=== PATIENT | female | born 1970 | race Two or more races ===

== ENCOUNTER 2021-12-10 16:02 | Inpatient (IN) | payer OTHER ==
[~2021-12-10] VITALS: Ht 167.6 cm; Wt 64.0 kg
[2021-12-10] MEDS: ENOXAPARIN SODIUM 40 MG/0.4 ML DISP.SYRIN SQ SCH (02:18)
--- NOTE | 2021-12-10 16:15 | NUR ---
[id number], from home, sob 89% on 2lpm NC, 96% on NRB, family said patient been having cough x 1 week. PLACED ON BED, AWAKE KNOWN HISTORY OF CEREBRAL PALSY- NON VERBAL, BREATHING EVEN AND UNLABORED SATURATING AT 97% WITH 4 LIT O2 VIA NASAL CANULA.
--- NOTE | 2021-12-10 16:20 | NUR ---
HUMAN RESOURCES BENEFITS COORDINATOR AT BED SIDE
--- NOTE | 2021-12-10 17:00 | NUR ---
SWAB FOR COVID19 SENT TO LAB
--- NOTE | 2021-12-10 17:12 | NUR ---
X-RAY TECH AT BED SIDE
[2021-12-10] MEDS ORDERED: ROPI0.255 PO (18:00)
[2021-12-10] MEDS ORDERED: MONT10TA22 PO (18:00)
[2021-12-10] MEDS ORDERED: TRAM50TA2 PO (18:00)
[2021-12-10] MEDS ORDERED: FURO-145 PO (18:00)
[2021-12-10] MEDS ORDERED: FOLI0.4T6 PO (18:00)
[2021-12-10] MEDS ORDERED: NORT25CA PO (18:00)
[2021-12-10] MEDS ORDERED: TEMA30CA PO (18:00)
[2021-12-10] MEDS ORDERED: LOSA1TAB39 PO (18:00)
[2021-12-10] MEDS ORDERED: BACL10TA PO (18:00)
[2021-12-10] MEDS ORDERED: DOCU-141 PO (18:00)
[2021-12-10] MEDS ORDERED: ATEN50TA PO (18:00)
[2021-12-10 18:02] LABS: ALBUMIN 3.5 g/dL (3.4-5.0); BASOPHILS # (AUTO) 0.1 K/uL (0.0-0.2); BASOPHILS % (AUTO) 0.6 % (0.0-2.0); BILIRUBIN,DIRECT 0.1 mg/dL (0.0-0.2); BILIRUBIN,TOTAL 0.3 mg/dL (0.2-1.0); EOSINOPHILS % (AUTO) 2.3 % (0.0-6.0); HEMATOCRIT 38 % (33-45); HEMOGLOBIN 12.4 g/dL (11.5-14.8); LYMPHOCYTES # (AUTO) 2.5 K/uL (0.8-4.8); LYMPHOCYTES % (AUTO) 18.5 % (20.0-44.0); MEAN CORPUSCULAR HGB CONC 33 g/dl (31.0-36.0); MEAN CORPUSCULAR VOLUME 89 fL (82-100); MONOCYTES # (AUTO) 0.8 K/uL (0.1-1.30); MONOCYTES % (AUTO) 6.1 % (2.0-12.0); NEUTROPHILS # (AUTO) 9.9 K/uL (1.8-8.9); NEUTROPHILS % (AUTO) 72.5 % (43.0-81.0); RED BLOOD CELL COUNT(AUTO) 4.29 MIL/uL (4.0-5.2); TOTAL PROTEIN, SERUM 7.4 g/dL (6.4-8.2); WHITE BLOOD COUNT (AUTO) 13.7 K/uL (4.3-11.0)
[2021-12-10 18:16] LABS: CARBON DIOXIDE 33 mmol/L (21-32); CHLORIDE 98 mmol/L (98-107); CREATININE 0.9 mg/dL (0.6-1.3); GLUCOSE 123 mg/dL (74-106); POTASSIUM 3.8 mmol/L (3.5-5.1); SODIUM SERUM 138 mmol/L (136-145); UREA NITROGEN, BLOOD 32 mg/dL (7-18)
--- NOTE | 2021-12-10 18:25 | NUR ---
URINE SAMPLE SENT TO LAB
[2021-12-10 18:27] LABS: PLATELET COUNT (AUTO) 412 K/uL (150-450)
[2021-12-10 18:35] LABS: EOSINOPHILS % (MANUAL) 1 % (0-4); LYMPHOCYTES % (MANUAL) 22 % (16-48); MONOCYTES % (MANUAL) 5 % (0-11.0); NEUTROPHILS % (MANUAL) 72 (42-76)
--- NOTE | 2021-12-10 19:42 | NUR ---
[facility] CALLED DAIRY FARMER PAGED.
[2021-12-10 19:46] LABS: BILIRUBIN,URINE NEGATIVE (NEGATIVE); COLOR,URINE YELLOW (YELLOW); LEUKOCYTE ESTERASE ,URINE TRACE (NEGATIVE); NITRITE, URINE POSITIVE (NEGATIVE); PROTEIN,URINE NEGATIVE (NEGATIVE); UGLUCOSE NEGATIVE (NEGATIVE); UROBILINOGEN,URINE 0.2 EU/dL (0.2)
[2021-12-10 19:53] LABS: BACTERIA,URINE 4+ /HPF (None Seen); RBC,URINE 0-2 /HPF (0-2); SQUAMOUS EPITHELIAL CELL,UR 0-2 /HPF (None Seen)
[2021-12-10] MEDS ORDERED: IV NS 0.9% 1,000 ML IV ONE (20:30)
[2021-12-10] MEDS ORDERED: CT SWABBABLE VALVE TRANS SET 1 EA INFUS.SET MC ONE (20:46)
[2021-12-10] MEDS ORDERED: IOHEXOL-350 100 ML VIAL IV ONE (20:46)
[2021-12-10] MEDS ORDERED: IV NS 0.9% 250 ML IV ONE (20:47)
[2021-12-10] MEDS ORDERED: ONDANSETRON HCL/PF 4 MG/2 ML VIAL IVP PRN (21:00)
[2021-12-10] MEDS ORDERED: CEFTRIAXONE 1 G in IV D5W 50 ML IV ONE (21:00)
[2021-12-10] MEDS ORDERED: MAGNESIUM HYDROXIDE 30 ML UDC PO PRN (21:00)
[2021-12-10] MEDS ORDERED: CEFTRIAXONE 1GM BAG (ER ONLY) 50 ML IV ONE (21:06)
--- NOTE | 2021-12-10 22:52 | NUR ---
Efe john in [facility] - 12/10/21 at 2332 by JOSE F tele [phone]
[2021-12-10] MEDS ORDERED: TEMAZEPAM 15 MG CAPSULE PO SCH (23:04)
--- NOTE | 2021-12-10 23:32 | NUR ---
TELE [phone]
[2021-12-10] MEDS: IV NS 0.9% 1,000 ML IV PRN (23:40)
--- NOTE | 2021-12-10 23:49 | NUR ---
REPORT GIVEN TO RN ROOM 325 FOR MARY
--- NOTE | 2021-12-11 00:12 | NUR ---
RT PAGED FOR SUCTIONING
--- NOTE | 2021-12-11 00:18 | NUR ---
RT AT BEDSIDE FOR SUCTIONING
[2021-12-11] MEDS ORDERED: IV NS 0.9% 500 ML IV ONE (00:30)
[2021-12-11] MEDS: ACETYLCYSTEINE 10% SOLN 400 MG/4 ML VIAL NEB SCH ×4 (00:30→23:53)
[2021-12-11] MEDS ORDERED: ALBUTEROL HALF STRENGTH 1.25 MG/3 ML VIAL.NEB NEB PRN (00:30)
[2021-12-11] MEDS ORDERED: IPRATROPIUM NEB FS 0.5 MG/2.5 ML AMPUL.NEB NEB PRN (00:30)
[2021-12-11] MEDS ORDERED: ENOXAPARIN SODIUM 40 MG/0.4 ML DISP.SYRIN SQ ONE (02:14)
[2021-12-11] MEDS: ENOXAPARIN SODIUM 40 MG/0.4 ML DISP.SYRIN SQ SCH ×2 (02:18→21:51)
[2021-12-11] MEDS: NORTRIPTYLINE HCL 25 MG CAPSULE PO SCH ×2 (02:18→18:00)
[2021-12-11] MEDS ORDERED: MONTELUKAST SODIUM (10MG) 10 MG TABLET ONE (02:55)
[2021-12-11] MEDS: MONTELUKAST SODIUM (10MG) 10 MG TABLET PO SCH ×2 (03:00→21:52)
--- NOTE | 2021-12-11 04:23 | NUR ---
PT AWAKE AND ALERT RESTING COMOFORTABLY. ORAL SUCTIONING PERFORMED WITH SEGUN. SON AT BEDSIDE.
[2021-12-11 07:04] LABS: BASOPHILS % (AUTO) 0.5 % (0.0-2.0); HEMATOCRIT 33 % (33-45); LYMPHOCYTES # (AUTO) 1.5 K/uL (0.8-4.8); LYMPHOCYTES % (AUTO) 16.1 % (20.0-44.0); MEAN CORPUSCULAR HGB CONC 33 g/dl (31.0-36.0); MEAN CORPUSCULAR VOLUME 89 fL (82-100); MONOCYTES # (AUTO) 0.5 K/uL (0.1-1.30); MONOCYTES % (AUTO) 5.8 % (2.0-12.0); NEUTROPHILS # (AUTO) 7.1 K/uL (1.8-8.9); NEUTROPHILS % (AUTO) 75.6 % (43.0-81.0); PLATELET COUNT (AUTO) 257 K/uL (150-450); RED BLOOD CELL COUNT(AUTO) 3.73 MIL/uL (4.0-5.2); WHITE BLOOD COUNT (AUTO) 9.3 K/uL (4.3-11.0)
[2021-12-11 07:24] LABS: CALCIUM, SERUM 8.2 mg/dL (8.5-10.1); CREATININE 0.6 mg/dL (0.6-1.3); MAGNESIUM 2.2 mg/dL (1.8-2.4); PHOSPHORUS 3.2 mg/dL (2.5-4.9); POTASSIUM 3.2 mmol/L (3.5-5.1)
--- NOTE | 2021-12-11 07:41 | NUR ---
[facility] BED 111-1
--- NOTE | 2021-12-11 07:49 | NUR ---
report given to Dex GAXIOLA The patient will go to 111.1 - ANNE-MARIE
[2021-12-11 09:00] VITALS: BP 99/59
[2021-12-11] MEDS: BACLOFEN (10 MG) 10 MG TABLET PO SCH (09:00)
[2021-12-11] MEDS: ropiniROLE 0.5 MG TABLET PO SCH (09:00)
[2021-12-11] MEDS: DOCUSATE SODIUM 100 MG CAPSULE PO SCH (09:00)
[2021-12-11] MEDS: FOLIC ACID 1 MG TABLET PO SCH (09:00)
[2021-12-11] MEDS: PANTOPRAZOLE 40 MG VIAL IV SCH (09:44)
[2021-12-11] MEDS: IPRATROPIUM NEB FS 0.5 MG/2.5 ML AMPUL.NEB NEB SCH ×5 (10:00→23:53)
[2021-12-11] MEDS: ALBUTEROL HALF STRENGTH 1.25 MG/3 ML VIAL.NEB NEB SCH ×5 (10:00→23:53)
[2021-12-11] MEDS: IV NS 0.9% 1,000 ML IV PRN (11:23)
[2021-12-11] MEDS: POTASSIUM CL. PREMIX PERIPHER. 50 ML IV SCH ×4 (11:23→14:29)
[2021-12-11 12:00] VITALS: BP 124/66
[2021-12-11] MEDS ORDERED: IV NS 0.9% 250 ML IV ONE (13:53)
[2021-12-11] MEDS ORDERED: CT SWABBABLE VALVE TRANS SET 1 EA INFUS.SET MC ONE (13:53)
[2021-12-11] MEDS ORDERED: IOHEXOL-350 100 ML VIAL IV ONE (13:53)
--- NOTE | 2021-12-11 15:22 | NUR ---
RT 1000 tx not given. Not aware of new order
[2021-12-11 16:00] VITALS: BP 119/77
--- NOTE | 2021-12-11 18:54 | NUR ---
RN CLOSING PATIENT3 RESTING IN TURNER A/OX 0 OPENS EYES TO TOUCH, MOTHER AT BED SIDE ON 4L NC. NO CURRENT SINGS OF SOB OR DISTRESS GARZA CATH DRAINING CLEAR YELLOW URINE. PATIENT IS NPO PENDING SWALLOW EVAL. IV ON LEFT HAND 20G AND RIGHT UPPER ARM 18G RUNNING NS AT 75MLS/HR. ALL SAFETY MEASURES IN PLACE WILL ENDORSE TO NIGHT NURSE FOR MARY.
--- NOTE | 2021-12-11 19:35 | NUR ---
RN OPENING NOTES: RECEIVED PATIENT IN BED, A/O XO, OPENING BOTH EYES. FAMILY AT BEDSIDE. ON O2 AT 4L/MIN VIA N/C AND PT TOLERATED WELL. NO S/S OF DISTRESS NOTED. ON IV ACCESS ON LEFT HAND #20G AND RIGHT UPPER ARM#18G INTACT AND PATENT. NO S/S OF INFILTRATIONS. RUNNING NS AT 75CC/HR. NO FACIAL GRIMACING NOTED. NO ACUTE DISTRESS. GARZA CATH IN PLACE. DRAINING BY GRAVITY. NOTED YELLOWISH/CLEAR URINE. PATIENT REMAIN NPO DUE TO PENDING SWALLOW EVAL. ALL SAFETY MEASURES IN PLACE. BED IN LOWEST POSITION AND LOCKED. SIDE RAILS UP X3, PLACE CALL LIGHT WITH IN REACH. WILL CONTINUE TO MONITOR.
[2021-12-11 20:00] VITALS: BP 122/67
[2021-12-11] MEDS ORDERED: CEFTRIAXONE 1 G in IV D5W 50 ML IV SCH (21:00)
[2021-12-11] MEDS ORDERED: PIPERACILLIN /TAZOBACTAM 3.375 G in IV D5W 50 ML IV SCH (21:00)
[2021-12-11] MEDS ORDERED: MORPHINE SULFATE INJ 2 MG/ML DISP.SYRIN IV ONE (21:30)
--- NOTE | 2021-12-11 21:53 | NUR ---
RN NOTES: NOTED PT WITH FACIAL GRIMACING, CRYING. RESTLESSNESS. PT HAS NPO STATUS UNTIL SWALLOW EVAL. NOTIFIED DR. GUSTABO POTTER. ORDER- MORPHINE 1ML ONCE ONLY. NOTED AND CARRIED OUT. MORPHINE 1 ML GIVEN AND PT TOLERATED WELL. WILL CONTINUE TO MONITOR. MOTHER AT BEDSIDE.
[2021-12-11] MEDS ORDERED: TRAMADOL HCL 50 MG TABLET PO PRN (22:00)
--- NOTE | 2021-12-11 22:00 | NUR ---
RN NOTES: PO MED ON HOLD PT REMAIN NPO. WILL CONTINUE TO MONITOR.
[2021-12-12] VITALS: BP 99/67
[2021-12-12] MEDS: IV NS 0.9% 1,000 ML IV PRN ×2 (02:18→18:24)
[2021-12-12] MEDS: IPRATROPIUM NEB FS 0.5 MG/2.5 ML AMPUL.NEB NEB SCH ×6 (03:03→23:57)
[2021-12-12] MEDS: ALBUTEROL HALF STRENGTH 1.25 MG/3 ML VIAL.NEB NEB SCH ×7 (03:04→23:57)
[2021-12-12 04:00] VITALS: BP 112/66
[2021-12-12] MEDS: PIPERACILLIN /TAZOBACTAM 3.375 G in IV D5W 50 ML IV SCH ×4 (05:18→23:55)
--- NOTE | 2021-12-12 06:40 | NUR ---
RN CLOSING NOTES: PATIENT IN BED, A/O XO, OPENING BOTH EYES. MOM AT BEDSIDE. ON O2 AT 4L/MIN VIA N/C AND PT TOLERATED WELL. O2 SAT 99%. ON IV ACCESS ON LEFT HAND #20G AND RIGHT UPPER ARM#18G INTACT AND PATENT. NO S/S OF INFILTRATIONS. RUNNING NS AT 75CC/HR. NO FACIAL GRIMACING NOTED. NO ACUTE DISTRESS. GARZA CATH IN PLACE. DRAINING BY GRAVITY. NOTED YELLOWISH/CLEAR URINE. PATIENT REMAIN NPO DUE TO PENDING SWALLOW EVAL. ALL DUE MEDS GIVEN PER ORDERED. ALL SAFETY MEASURES IN PLACE. BED IN LOWEST POSITION AND LOCKED. SIDE RAILS UP X3, PLACE CALL LIGHT WITH IN REACH. WILL ENDORSE TO MORNING SHIFT NURSE.
--- NOTE | 2021-12-12 07:51 | NUR ---
WILDLIFE VETERINARIAN OPENING NOTE PATIENT IS ALERT AND ORIENTED X0. PATIENT IS NONVERBAL AND ABLE TO OPEN EYES. PATIENT IS CURRENTLY ON TELE MONITOR RUNNING AT SINUS TACHYCARDIA. PATIENT HAS BILATERAL UPPER EDEMA. PATIENT HAS SACRAL REDNESS AND GENERAL RASH. PATIENT IS CURRENTLY NPO PENDING SWALLOW EVAL. PATIENT HAS LEFT HAND 20 GAUGE, RIGHT UPPER ARM 18 GAUGE.IV PATENT AND FLUSHING WELL. ALL SAFETY MEASURES IN PLACE. CALL LIGHT WITH REACH. BED LOCKED AT LOWEST POSITION. SIDE RAILS UP X2.
[2021-12-12] MEDS: ACETYLCYSTEINE 10% SOLN 400 MG/4 ML VIAL NEB SCH ×3 (07:52→23:57)
--- NOTE | 2021-12-12 07:54 | NUR ---
FAMILY AT BEDSIDE
[2021-12-12 08:00] VITALS: BP 108/67
[2021-12-12] MEDS: FOLIC ACID 1 MG TABLET PO SCH (09:00)
[2021-12-12] MEDS: BACLOFEN (10 MG) 10 MG TABLET PO SCH (09:00)
[2021-12-12] MEDS: DOCUSATE SODIUM 100 MG CAPSULE PO SCH (09:00)
[2021-12-12] MEDS: ropiniROLE 0.5 MG TABLET PO SCH (09:00)
[2021-12-12] MEDS: PANTOPRAZOLE 40 MG VIAL IV SCH (10:00)
--- NOTE | 2021-12-12 10:51 | NUR ---
WOUND CARE CONSULT: PT PRESENTS WITH SACRAL STAGE 3 PRESSURE ULCER AND RASH TO CHEST, ABDOMEN, BACK, UPPER AND LOWER EXTREMITIES, UNKNOWN ETIOLOGY, ALL PRESENT ON ADMISSION. RECOMMENDATIONS MADE FOR SKIN PROTECTION AND WOUND CARE. DISCUSSED WITH NURSING STAFF. SURGICAL CONSULT CALLED TO DR AHUMADA. FIRST STEP LOW AIRLOSS MATTRESS ORDERED. KAYLA ASTUDILLO. IN AGREEMENT WITH PLAN OF CARE. Addendum: 12/12/21 at 1053 by LACIE INTERIANO WNDNU Amended: Links added.
[2021-12-12] MEDS ORDERED: HYDROGEL DRESSING 90 GM TUBE TP PRN (11:00)
[2021-12-12] MEDS ORDERED: Z GUARD REMEDY 4 OZ OINT TP PRN (11:00)
[2021-12-12] MEDS: Z GUARD REMEDY 4 OZ OINT TP SCH (11:40)
[2021-12-12 12:00] VITALS: BP 115/77
[2021-12-12] MEDS: HYDROGEL DRESSING 90 GM TUBE TP SCH (13:16)
[2021-12-12] MEDS ORDERED: NA PHOS,M-B/NA PHOS,DI-BA 1 EA ENEMA RC PRN (14:30)
[2021-12-12 16:00] VITALS: BP 119/79
[2021-12-12] MEDS: NORTRIPTYLINE HCL 25 MG CAPSULE PO SCH (18:00)
--- NOTE | 2021-12-12 18:46 | NUR ---
patient family refused pamelor medication
--- NOTE | 2021-12-12 19:30 | NUR ---
NEWSPAPER PRESS OPERATOR APPRENTICE OPENING NOTE RECEIVED PATIENT IS A/O X0. PATIENT IS NONVERBAL AND ABLE TO OPEN EYES. PATIENT IS CURRENTLY ON TELE MONITOR RUNNING AT SINUS TACHYCARDIA 130-140'S. PATIENT HAS BILATERAL UPPER EDEMA. PATIENT HAS GENERALIZED RASH, AND SACRAL REDNESS. IV ACCESS L HAND 20 GAUGE.CURRENTLY RUNNING NS 75ML/HR. PATIENT HAS FAMILY MEMBERS IN THE ROOM. ALL SAFETY MEASURES IN PLACE. CALL LIGHT WITH REACH. BED LOCKED AT LOWEST POSITION. SIDE RAILS UP X2.
--- NOTE | 2021-12-12 19:45 | NUR ---
TELE/FURNACE CONVERTER CLOSING NOTE PATIENT IS ALERT AND ORIENTED X0. PATIENT IS NONVERBAL AND ABLE TO OPEN EYES. PATIENT IS ON 4L NASAL CANNULA.TOLERATING AT ABOVE 94%.PATIENT IS CURRENTLY ON TELE MONITOR RUNNING AT SINUS TACHYCARDIA. PATIENT HAS BILATERAL UPPER EDEMA.PATIENT HAS GENERALIZED RASH ON ARMS, CHEST, BACK AND GROIEN AREA. PATIENT HAS SACRAL REDNESS AND GENERAL RASH. PATIENT IS ON PUREED DIET. PATIENT HAS LEFT HAND 20 GAUGE.IV PATENT AND FLUSHING WELL. ALL SAFETY MEASURES IN PLACE. CALL LIGHT WITH REACH. BED LOCKED AT LOWEST POSITION. SIDE RAILS UP X2.
[2021-12-12] MEDS: ACETAMINOPHEN 325 MG TABLET PO PRN (19:46)
[2021-12-12 20:00] VITALS: BP 130/80
[2021-12-12] MEDS: ENOXAPARIN SODIUM 40 MG/0.4 ML DISP.SYRIN SQ SCH (21:39)
[2021-12-12] MEDS: MONTELUKAST SODIUM (10MG) 10 MG TABLET PO SCH (23:53)
[2021-12-13] VITALS: BP 114/78
[2021-12-13] MEDS: ALBUTEROL HALF STRENGTH 1.25 MG/3 ML VIAL.NEB NEB SCH ×6 (03:31→23:34)
[2021-12-13] MEDS: IPRATROPIUM NEB FS 0.5 MG/2.5 ML AMPUL.NEB NEB SCH ×6 (03:31→23:34)
[2021-12-13 04:00] VITALS: BP 113/77
[2021-12-13] MEDS: PIPERACILLIN /TAZOBACTAM 3.375 G in IV D5W 50 ML IV SCH ×3 (06:24→17:21)
[2021-12-13] MEDS: IV NS 0.9% 1,000 ML IV PRN ×2 (06:24→17:24)
--- NOTE | 2021-12-13 06:44 | NUR ---
CONCRETE PANEL INSTALLER CLOSING NOTE PATIENT IS A/O X0. PATIENT IS NONVERBAL AND ABLE TO OPEN EYES. PATIENT IS CURRENTLY ON TELE MONITOR RUNNING AT ST 129. PATIENT HAS BILATERAL UPPER EDEMA. PATIENT HAS GENERALIZED RASH, AND SACRAL REDNESS. IV ACCESS L HAND 20 GAUGE.CURRENTLY RUNNING NS 75ML/HR. MOTHER IN THE ROOM. ALL DUE MEDS GIVEN. ALL SAFETY MEASURES IN PLACE. BED IN LOWEST POSITION AND LOCKED. SIDE RAILS UP X3, CALL LIGHT WITH IN REACH, HOB ELEVATED AT 30 DEGREES. PATIENT TURNED AND REPOSITION Q2H. WILL ENDORSE TO MORNING SHIFT.
--- NOTE | 2021-12-13 07:13 | NUR ---
RN OPENING NOTE RECEIVED PATIENT IS A/O X0. PATIENT IS NONVERBAL AND ABLE TO OPEN EYES. PATIENT IS CURRENTLY ON TELE MONITOR . PATIENT HAS BILATERAL UPPER EDEMA. PATIENT HAS GENERALIZED RASH, AND SACRAL REDNESS. IV ACCESS L HAND 20 GAUGE.CURRENTLY RUNNING NS 75ML/HR. PATIENT HAS FAMILY MEMBERS IN THE ROOM. ALL SAFETY MEASURES IN PLACE. CALL LIGHT WITH REACH. BED LOCKED AT LOWEST POSITION. SIDE RAILS UP X2.
[2021-12-13 08:00] VITALS: BP 119/76
[2021-12-13] MEDS: ACETYLCYSTEINE 10% SOLN 400 MG/4 ML VIAL NEB SCH ×3 (08:00→23:34)
[2021-12-13] MEDS: DOCUSATE SODIUM 100 MG CAPSULE PO SCH (08:03)
[2021-12-13] MEDS: FOLIC ACID 1 MG TABLET PO SCH (08:03)
[2021-12-13] MEDS: BACLOFEN (10 MG) 10 MG TABLET PO SCH (08:03)
[2021-12-13] MEDS: ropiniROLE 0.5 MG TABLET PO SCH (08:03)
[2021-12-13] MEDS: PANTOPRAZOLE 40 MG VIAL IV SCH (08:03)
[2021-12-13] MEDS: HYDROGEL DRESSING 90 GM TUBE TP SCH (08:04)
[2021-12-13] MEDS: Z GUARD REMEDY 4 OZ OINT TP SCH (08:04)
[2021-12-13 12:00] VITALS: BP 128/67
[2021-12-13] MEDS ORDERED: diphenhydrAMINE HCL 50 MG/ML VIAL IV PRN (12:00)
[2021-12-13] MEDS: ACETAMINOPHEN 325 MG TABLET PO PRN (14:54)
[2021-12-13 16:00] VITALS: BP 122/75
[2021-12-13] MEDS: NORTRIPTYLINE HCL 25 MG CAPSULE PO SCH (17:21)
--- NOTE | 2021-12-13 18:53 | NUR ---
RN CLOSING NOTE PATIENT IS ALERT AND ORIENTED X0. PATIENT IS NONVERBAL AND ABLE TO OPEN EYES. PT IS ON ROOM AIR .PATIENT IS CURRENTLY ON TELE MONITOR. PATIENT HAS BILATERAL UPPER EDEMA.PATIENT HAS GENERALIZED RASH ON ARMS, CHEST, BACK AND GROIN AREA. PATIENT HAS SACRAL REDNESS AND GENERAL RASH. PATIENT IS ON PUREED DIET. PATIENT HAS LEFT HAND 20 GAUGE.IV PATENT AND FLUSHING WELL. ALL SAFETY MEASURES IN PLACE. CALL LIGHT WITH REACH. BED LOCKED AT LOWEST POSITION. SIDE RAILS UP X2.
[2021-12-13 20:00] VITALS: BP 106/66
--- NOTE | 2021-12-13 20:00 | NUR ---
SOUND TECHNICIAN SUPERVISOR OPENING NOTE RECEIVED PATIENT IN BED WITH EYE OPEN A/O X1.NONVERBAL PATIENT IS CURRENTLY ON TELE MONITOR SINUS TACHYCARDIA 103 . R/A SATING 100% HOB ELEVATED AT ALL TIMES ,NO SOB NO DISTRESS NOTED V/S STABLE AFEBRILE .HAD LARGE BMX 1 .PTS TURN .CLEAN DRY AND COMFORTABLE STILL NOTED WITH BILATERAL UPPER EDEMA. GENERALIZED RASH, AND SACRAL OPEN WOUND IV ACCESS L HAND 20 GAUGE.CURRENTLY RUNNING NS 75ML/HR. ALL DUE MEDS GIVEN ORDERED NO ASE NOTED. FAMILY MEMBERS AT BEDSIDE UPDATED WITH PTS CONDITION . PER FAMILY PTS [facility] ([facility] TEL [phone] FAX [phone],ADDRESS [address] [place] [address] [address] [place] [id number]) ALL SAFETY MEASURES IN PLACE. CALL LIGHT WITH REACH. BED LOCKED AT LOWEST POSITION. SIDE RAILS UP X2.WILL CONTINUE TO MONITOR PTS.
--- NOTE | 2021-12-13 20:07 | NUR ---
RT Pt recvd awake and non verbal on room air with coarse BS. Family member at bedside. neb tx given and aaliyah well, no adverse reaction. I placed pt back on NC 2 lpm.
[2021-12-13] MEDS: ENOXAPARIN SODIUM 40 MG/0.4 ML DISP.SYRIN SQ SCH (21:27)
[2021-12-13] MEDS: MONTELUKAST SODIUM (10MG) 10 MG TABLET PO SCH (21:28)
[2021-12-14] VITALS: BP 112/77
[2021-12-14] MEDS: PIPERACILLIN /TAZOBACTAM 3.375 G in IV D5W 50 ML IV SCH ×3 (00:31→11:33)
[2021-12-14] MEDS: ALBUTEROL HALF STRENGTH 1.25 MG/3 ML VIAL.NEB NEB SCH ×3 (03:46→12:01)
[2021-12-14] MEDS: IPRATROPIUM NEB FS 0.5 MG/2.5 ML AMPUL.NEB NEB SCH ×3 (03:46→12:01)
[2021-12-14 04:00] VITALS: BP 108/84
--- NOTE | 2021-12-14 07:17 | NUR ---
LOGGING RAFTER LABORER CLOSING NOTES PTS REMAIN IN BED ON 2 LITERS OF O2 VIA NC , ST ON MONITOR , NO SOB NO DISTRESS NOTED SISTER AT BEDSIDE ,WILL ENDORSE PTS TO RN DAY SHIFT FOR CONTINUITY OF CARE
--- NOTE | 2021-12-14 07:17 | NUR ---
RN OPENING NOTE RECEIVED PATIENT IS A/O X0. PATIENT IS NONVERBAL AND ABLE TO OPEN EYES. PATIENT IS CURRENTLY ON TELE MONITOR . PATIENT HAS BILATERAL UPPER EDEMA. PATIENT HAS GENERALIZED RASH, AND SACRAL REDNESS. PATIENT ON NC 2L. IV ACCESS L HAND 20 GAUGE.CURRENTLY RUNNING NS 75ML/HR. PATIENT HAS FAMILY MEMBERS IN THE ROOM. ALL SAFETY MEASURES IN PLACE. CALL LIGHT WITH REACH. BED LOCKED AT LOWEST POSITION. SIDE RAILS UP X2.
[2021-12-14] MEDS: ACETYLCYSTEINE 10% SOLN 400 MG/4 ML VIAL NEB SCH (07:51)
[2021-12-14 08:00] VITALS: BP 109/70
[2021-12-14] MEDS: DOCUSATE SODIUM 100 MG CAPSULE PO SCH (08:05)
[2021-12-14] MEDS: FOLIC ACID 1 MG TABLET PO SCH (08:05)
[2021-12-14] MEDS: BACLOFEN (10 MG) 10 MG TABLET PO SCH (08:05)
[2021-12-14] MEDS: PANTOPRAZOLE 40 MG VIAL IV SCH (08:05)
[2021-12-14] MEDS: ropiniROLE 0.5 MG TABLET PO SCH (08:05)
[2021-12-14] MEDS: Z GUARD REMEDY 4 OZ OINT TP SCH (08:06)
[2021-12-14] MEDS: HYDROGEL DRESSING 90 GM TUBE TP SCH (08:06)
[2021-12-14] MEDS ORDERED: AMOX-430 PO (10:21)
[2021-12-14 12:00] VITALS: BP 105/47
--- NOTE | 2021-12-14 12:45 | NUR ---
RN note Enema not administered, administered one 12/13/2021. Changed patient 1100 large bowel movement present Addendum: 12/14/21 at 1246 by JOCELINE LEVIN RN Amended: Links added.
--- NOTE | 2021-12-14 14:27 | NUR ---
RN NOTE DISCHARGE INSTRUCTION DISCUSSED WITH PATIENT BROTHER AND MOTHER. ALL QUESTIONS ANSWERED. PATIENT IS SCHEDULED TO BE PICKED UP BY AMBULANCE 1500, FAMILY AWARE. NO FURTHER QUESTIONS
--- NOTE | 2021-12-14 14:55 | NUR ---
RN NOTE PATIENT PICKED UP BY EMT WITH FAMILY AT BEDSIDE
[2021-12-15] MEDS ORDERED: PANTOPRAZOLE 40 MG/PACK PACK NG SCH (07:30)
== END 2021-12-14 20:00 | disposition hospice, home (50) | DRG 720 ==
LOC: ER 16:04 → TELE 22:53 → TELE1 12-11 07:53 → TELE-TD 12-11 08:12 → TELE1 12-12 10:06
PROVIDERS: ADMIT Nurse Practitioner Acute Care; ATTEND Internal Medicine
DX: A41.9 Sepsis, unspecified organism (principal); N17.0 Acute kidney failure with tubular necrosis; J69.0 Pneumonitis due to inhalation of food and vomit; R53.2 Functional quadriplegia; D68.59 Other primary thrombophilia; E86.0 Dehydration; F03.90 Unspecified dementia, unspecified severity, without behavioral disturbance, psychotic disturbance, mood disturbance, and anxiety; I50.9 Heart failure, unspecified; I11.0 Hypertensive heart disease with heart failure; J98.11 Atelectasis; N39.0 Urinary tract infection, site not specified; E11.9 Type 2 diabetes mellitus without complications; G80.9 Cerebral palsy, unspecified; J40 Bronchitis, not specified as acute or chronic; L74.0 Miliaria rubra; E78.00 Pure hypercholesterolemia, unspecified; I25.10 Atherosclerotic heart disease of native coronary artery without angina pectoris; R09.02 Hypoxemia; R13.10 Dysphagia, unspecified; Z51.5 Encounter for palliative care; Z74.01 Bed confinement status; Z86.73 Personal history of transient ischemic attack (TIA), and cerebral infarction without residual deficits; Z66 Do not resuscitate; Z20.822 Contact with and (suspected) exposure to COVID-19
CPT/HCPCS: 31720; 36415; 71045-TC; 74018; 80048-TC; 80061-TC; 80076-TC; 81001; 83605-TC; 83735-TC; 84100-TC; 84484-TC; 85025-TC; 85378-TC; 85730-TC; 87040-TC; 87081-TC; 87086-TC; 87186-TC; 92526; 92611-TC; 94762-TC; 94799-TC; A6248; C9113; C9803; G0378; J0696; J1650; J2270; J2543; J3480; J7030; J7040; J7050; J7060; Q9967

== ENCOUNTER 2021-12-31 23:11 | Inpatient (IN) | payer OTHER ==
[~2021-12-31] VITALS: Ht 160 cm; Wt 78.5 kg
[~2021-12-31 23:11] MED LIST: AMOX-430 PO; ATEN50TA PO; BACL10TA PO; DOCU-141 PO; FOLI0.4T6 PO; FURO-145 PO; LOSA1TAB39 PO; MONT10TA22 PO; NORT25CA PO; ROPI0.255 PO; TEMA30CA PO; TRAM50TA2 PO
--- NOTE | 2021-12-31 23:13 | NUR ---
[id number] FROM HOME C/O AMS, LOW BP, LOW O2 SAT AND FEVER ON TX FOR PNA. SATTING 90% ON 15LPM. CONNECTED PT TO POX AND MONITOR. SAFETY MEASURES IN PLACE.
[2021-12-31] MEDS ORDERED: IV NS 0.9% 1,000 ML BAG IV ONE (23:30)
[2021-12-31] MEDS ORDERED: VANCOMYCIN 1 GM in IV D5W 250 ML IV ONE (23:30)
[2021-12-31] MEDS ORDERED: PIPERACILLIN /TAZOBACTAM 3.375 G in IV D5W 50 ML IV ONE (23:30)
--- NOTE | 2021-12-31 23:40 | NUR ---
Efe john in [facility] - 12/31/21 at 2346 by SALOMÓN [phone] Joy WANG
[2021-12-31] MEDS ORDERED: ACETAMINOPHEN 650 MG/SUPP.RECT RC ONE (23:44)
[2021-12-31] MEDS ORDERED: PIPERACILLIN /TAZOBACTAM 3.375 G VIAL IV ONE (23:44)
--- NOTE | 2021-12-31 23:53 | NUR ---
COVID ANTIGEN SWAB COLLECTED AND SENT TO LAB
--- NOTE | 2021-12-31 23:55 | NUR ---
[facility] #20G S/L BLOOD COLLECTED AND SENT TO LAB
--- NOTE | 2021-12-31 23:55 | NUR ---
URINE COLLECTED AND SENT TO LAB
[2022-01-01] VITALS (88 sets, daily range): BP systolic 70–137; BP diastolic 45–108
[2022-01-01] LABS: BASOPHILS # (AUTO) 0.1 K/uL (0.0-0.2); BASOPHILS % (AUTO) 0.4 % (0.0-2.0); HEMATOCRIT 46 % (33-45); HEMOGLOBIN 14.4 g/dL (11.5-14.8); LYMPHOCYTES # (AUTO) 3.3 K/uL (0.8-4.8); LYMPHOCYTES % (AUTO) 18.5 % (20.0-44.0); MEAN CORPUSCULAR HGB CONC 31 g/dl (31.0-36.0); MEAN CORPUSCULAR VOLUME 93 fL (82-100); MONOCYTES # (AUTO) 1.5 K/uL (0.1-1.30); MONOCYTES % (AUTO) 8.5 % (2.0-12.0); NEUTROPHILS % (AUTO) 72.6 % (43.0-81.0); PLATELET COUNT (AUTO) 233 K/uL (150-450); RED BLOOD CELL COUNT(AUTO) 4.95 MIL/uL (4.0-5.2); WHITE BLOOD COUNT (AUTO) 17.9 K/uL (4.3-11.0)
[2022-01-01] MEDS ORDERED: ACETAMINOPHEN 650 MG/SUPP.RECT RC ONE
[2022-01-01] MEDS ORDERED: IV NS 0.9% 1,000 ML BAG IV ONE
--- NOTE | 2022-01-01 | NUR ---
F/C 16FR INSERTED; URINE RETURN NOTED.
[2022-01-01 00:02] LABS: BILIRUBIN,URINE NEGATIVE (NEGATIVE); COLOR,URINE YELLOW (YELLOW); LEUKOCYTE ESTERASE ,URINE NEGATIVE (NEGATIVE); NITRITE, URINE NEGATIVE (NEGATIVE); PH,URINE 5.5 (5.0-8.0); PROTEIN,URINE 30 mg/dl (NEGATIVE); UGLUCOSE NEGATIVE (NEGATIVE); UROBILINOGEN,URINE 0.2 EU/dL (0.2)
[2022-01-01] MEDS ORDERED: VANCOMYCIN 1 GM VIAL ONE (00:04)
[2022-01-01 00:09] LABS: BACTERIA,URINE Many /HPF (None Seen); RBC,URINE 0-2 /HPF (0-2); WBC,URINE 0-2 /HPF (0-3)
[2022-01-01 00:10] LABS: SQUAMOUS EPITHELIAL CELL,UR Few /HPF (None Seen)
[2022-01-01] MEDS ORDERED: NOREPINEPHRINE 8 MG in IV NS 0.9% 250 ML IV ONE (00:30)
[2022-01-01 00:32] LABS: CALCIUM, SERUM 9.6 mg/dL (8.5-10.1); CARBON DIOXIDE 25 mmol/L (21-32); CHLORIDE 108 mmol/L (98-107); CREATININE 2.2 mg/dL (0.6-1.3); GLUCOSE 161 mg/dL (74-106); POTASSIUM 3.9 mmol/L (3.5-5.1); SODIUM SERUM 145 mmol/L (136-145); UREA NITROGEN, BLOOD 61 mg/dL (7-18)
[2022-01-01 00:37] LABS: ALANINE AMINOTRANSFERASE 40 U/L (12-78); ALBUMIN 3.3 g/dL (3.4-5.0); ALKALINE PHOSPHATASE 21 U/L (46-116); ASPARTATE AMINOTRANSFERASE 31 U/L (15-37); BILIRUBIN,DIRECT 0.2 mg/dL (0.0-0.2); BILIRUBIN,TOTAL 0.4 mg/dL (0.2-1.0); TOTAL PROTEIN, SERUM 7.7 g/dL (6.4-8.2)
[2022-01-01 00:38] LABS: ABG OXYGEN SATURATION 98.4 % (92.0-98.5); ABG PCO2 44.3 mmHg (35.0-45.0); ABG PH 7.283 (7.350-7.450); ABG PO2 143.7 mmHg (75.0-100.0); COHb 0.1 % (0.5-1.5); MetHb 0.4 % (0.0-1.5); O2Hb 97.9 % (94.0-97.0); SITE, ABG Right Radial; VENT MODE, BG 15L NON REBREATHER
[2022-01-01] MEDS ORDERED: NOREPINEPHRINE 4 MG/4 ML AMPUL IV ONE (00:43)
[2022-01-01] MEDS ORDERED: ALBUTEROL FS 2.5 MG/0.5 ML VIAL.NEB NEB PRN (01:00)
[2022-01-01] MEDS ORDERED: ONDANSETRON HCL/PF 4 MG/2 ML VIAL IVP PRN (01:00)
[2022-01-01] MEDS ORDERED: MORPHINE SULFATE INJ 2 MG/ML DISP.SYRIN IV PRN (01:00)
--- NOTE | 2022-01-01 01:03 | NUR ---
INITIATED LEVOPHED AT .05MCG/KG/MIN @ [facility] #20G S/L. BP 66/30. HR 111
--- NOTE | 2022-01-01 01:04 | NUR ---
DR. KEATING AT PT'S BEDSIDE TO INSERT CENTRAL LINE
--- NOTE | 2022-01-01 01:25 | NUR ---
RIJ CENTRAL LINE INSERTED #18G S/L
--- NOTE | 2022-01-01 01:32 | NUR ---
REGISTERED NURSE FLOAT POOL AT PT'S BEDSIDE
--- NOTE | 2022-01-01 02:01 | NUR ---
DR. JOY SAUNDERS AT PT'S BEDSIDE WITH FAMILY
[2022-01-01] MEDS ORDERED: IOHEXOL-300 100 ML VIAL IV ONE (02:11)
--- NOTE | 2022-01-01 02:11 | NUR ---
PT TAKEN TO CT VIA SHADE
--- NOTE | 2022-01-01 02:22 | NUR ---
REPORT GIVEN TO PATEL FISHING TOOL TECHNICIAN OIL WELL FOR MARY
[2022-01-01] MEDS ORDERED: CEFEPIME 1 GM in IV D5W 50 ML IV ONE (02:30)
--- NOTE | 2022-01-01 02:57 | NUR ---
PT TRANSFERRED TO ICU 261 VIA ACLS PROTOCOL. LEVOPHED AT .05MCG/KG/MIN @ [facility] #18G S/L. ON 15LPM NRB. ALL BELONGINGS WITH PT.
--- NOTE | 2022-01-01 03:00 | NUR ---
ICU/RN: RECIEVED PT ACCOMPANIED BY ER STAFF. PT WAS NOTED WITH AGONAL BREATHING AND DIFFICULT TO AROUSE BY PAINFUL STIMULI. DR. HAMILTON WAS AT BEDSIDE AND CALLED THE EMERGENCY ROOM DOCTOR TO INTUBATE THE PT TO MAINTAIN HER AIRWAY. DR. KEATING INTUBATED THE PT 7.5 ETT 22CM AT THE LIP. VERFIED BY CXR. OGT PLACED VERIFIED BY CXR. WILL CONTINUE PLAN OF CARE.
--- NOTE | 2022-01-01 03:20 | NUR ---
rt called to pt bedside for intubation. on arrival pt aloc on nrb 15l spo2 98%. pt intubated with 7.5 ett at 25cm. positive color change mist in the tube bilateral breath sounds. ett adjusted post xray with physician at bedside to 23cm. ett secured via anchorfast. placed on vent ac 24 450 100% +5. pt hr slightly elevated at this time. Addendum: 01/01/22 at 0450 by LIGIA GARZA RT Amended: Links added.
[2022-01-01] MEDS: NOREPINEPHRINE 8 MG in IV NS 0.9% 242 ML IV PRN ×3 (03:39→09:41)
[2022-01-01] MEDS: IV LR 1000 ML 1,000 ML IV SCH ×3 (03:40→21:27)
[2022-01-01] MEDS: PROPOFOL 100 ML IV PRN ×4 (04:05→22:11)
[2022-01-01] MEDS ORDERED: NOREPINEPHRINE 8MG/250ML RTU 250 ML IV ONE (04:20)
[2022-01-01] MEDS ORDERED: CEFEPIME 1 GM VIAL ONE (04:20)
[2022-01-01 05:19] LABS: ABG BASE EXCESS -10.3 mmol/L; ABG OXYGEN SATURATION 99.3 % (92.0-98.5); ABG PCO2 36.9 mmHg (35.0-45.0); ABG PH 7.255 (7.350-7.450); ABG PO2 313.2 mmHg (75.0-100.0); AaDO2 362.9 mmHg; COHb 0.4 % (0.5-1.5); MetHb 0.3 % (0.0-1.5); O2Hb 98.6 % (94.0-97.0); PEEP,BG 5 cm H2O; SITE, ABG Right Brachial; VENT MODE, BG AC 24 450 100% +5; VT, ABG 450 mL
--- NOTE | 2022-01-01 05:30 | NUR ---
ICU/RN: PT NOTED TO BE IN VENTRICULAR TACHYCARDIA AT A RATE OF 250BPM. THEN NOTED RYTHMN CHANGE TO SVT AT A RATE OF 250BPM. DR. HAMILTON WAS IMMEDIATLY NOTIFIED. NEW ORDERS TO OBTAIN STAT CARDIOLOGY CONSULT FROM DR. GARCIA. ER MD DR. KEATING WAS ASKED TO COME EVALUATE THE PT FOR POSSIBLE CARDIOVERSION. SVT WAS VERFIED BY 12LEAD EKG AND DR. KEATING SYNCHRONIZED CARDIOVERTED THE PT WITH 100J AT 0541. PT CONVERTED TO SINUS TACHYCARDIA WHICH WAS VERIFIED BY 12 LEAD EKG.
[2022-01-01] MEDS ORDERED: IPRATROPIUM/ALBUTEROL INHALER IH SCH (06:00)
[2022-01-01 06:07] LABS: MAGNESIUM 1.7 mg/dL (1.8-2.4); PHOSPHORUS 5.1 mg/dL (2.5-4.9)
--- NOTE | 2022-01-01 07:15 | NUR ---
OVERHEAD CRANE OPERATOR Bedside report taken from [facility] nurse Konrad GAXIOLA. pt sedated and intubated. pt does not follow commands. pt does not open eyes, moves bue 1/5 and ble 0/5 to painful stimuli. pt on ac vent setting with fio2 50% spo2 100%, tolerating well. pt has ogt, clamped, pt NPO at this time. positive placement verified. bowel sounds present. pt sinus tach on monitor with hr 120s, pulses present in bue and ble. pt has case intact and draining clear yellow urine. all lines traced. all drips verified. safety measures in place. pt connected to defibrillator at this time d/t recent cardioversion by RALPH SAUNDERS at 0541 am.
[2022-01-01] MEDS: IPRATROPIUM NEB FS 0.5 MG/2.5 ML AMPUL.NEB IH SCH ×2 (07:46→13:33)
[2022-01-01] MEDS: ALBUTEROL FS 2.5 MG/0.5 ML VIAL.NEB NEB SCH ×2 (07:46→13:34)
--- NOTE | 2022-01-01 07:54 | NUR ---
received on 50% fio2 titrate down to 40% due to 100% spo2 Addendum: 01/01/22 at 0754 by CURTIS KOVACS RT Amended: Links added.
[2022-01-01] MEDS: ropiniROLE 0.5 MG TABLET PO SCH (08:02)
[2022-01-01] MEDS: ACETAMINOPHEN 325 MG TABLET PO PRN ×2 (08:02→18:24)
[2022-01-01] MEDS: HEPARIN SODIUM, PORCINE 5000 UNITS/1 ML VIAL SQ SCH ×2 (08:04→21:29)
--- NOTE | 2022-01-01 08:06 | NUR ---
AUTOMOBILE MECHANIC technical aid at bedside doing study. pt tolerating well. vitals stable. will continue to monitor.
--- NOTE | 2022-01-01 08:17 | NUR ---
vent changes below made per dr. sutton: tidal volume increased from 450 ml to 475 ml. rn notified Addendum: 01/01/22 at 0818 by CURTIS KOVACS RT Amended: Links added.
--- NOTE | 2022-01-01 08:45 | NUR ---
CLOTH DOUBLING MACHINE OPERATOR Dr Evans at bedside assessing pt and updated on pt status. md aware that pt fio2 50% , pt on levophed. pt had temp 101.7 and prn tylenol given. no other orders at this time. will continue to monitor.
[2022-01-01] MEDS: Magnesium 1GM/D5W 100ML PREMIX 100 ML IV SCH ×2 (08:47→09:56)
[2022-01-01] MEDS: ACETYLCYSTEINE 10% SOLN 400 MG/4 ML VIAL NEB SCH ×2 (10:00→13:35)
[2022-01-01] MEDS ORDERED: ETOMIDATE 2 MG/ML VIAL IV ONE (12:10)
[2022-01-01] MEDS ORDERED: SUCCINYLCHOLINE CHLORIDE 20 MG/ML VIAL IJ ONE (12:10)
--- NOTE | 2022-01-01 16:36 | NUR ---
CONTROL OFFICER Pt bathed and cleaned. linen change done, skin check done, no new wounds noted. pt tolerated well. vitals stable. will continue to monitor.
[2022-01-01] MEDS: NORTRIPTYLINE HCL 25 MG CAPSULE PO SCH (17:45)
--- NOTE | 2022-01-01 18:32 | NUR ---
LENS GRINDER AND POLISHER Bedside report given to [facility] nurse Konrad GAXIOLA. pt sedated and intubated but arousable. all lines traced. all drips verified. pt clean and dry. vitals stable. safety measures in place. no signs of acute distress at this time. stat labs cbc and bmp endorsed to [facility] nurse, blood specimen sent to lab per md order. Addendum: 01/01/22 at 1904 by [facility]RY [facility] INPATIENT RN1 RN LENS GRINDER AND POLISHER Bedside report given to [facility] nurse Konrad GAXIOLA. pt sedated and intubated but arousable. all lines traced. all drips verified. pt clean and dry. vitals stable. safety measures in place. no signs of acute distress at this time. stat labs cbc and bmp endorsed to [facility] nurse, blood specimen sent to lab per md order.
[2022-01-01 19:19] LABS: ALBUMIN 2.1 g/dL (3.4-5.0); BILIRUBIN,TOTAL 0.3 mg/dL (0.2-1.0); TOTAL PROTEIN, SERUM 5.5 g/dL (6.4-8.2)
[2022-01-01 19:24] LABS: POTASSIUM 2.6 mmol/L (3.5-5.1)
--- NOTE | 2022-01-01 19:30 | NUR ---
ICU/RN: CRITICAL POTASSIUM LEVEL 2.[address] HAMILTON. NEW ORDERS RECIEVED AND CARRIED OUT.
[2022-01-01] MEDS: POTASSIUM CL. PREMIX PERIPHER. 50 ML IV SCH ×5 (19:42→23:52)
[2022-01-01 20:20] LABS: BASOPHILS # (AUTO) 0.1 K/uL (0.0-0.2); BASOPHILS % (AUTO) 0.5 % (0.0-2.0); HEMATOCRIT 39 % (33-45); HEMOGLOBIN 12.3 g/dL (11.5-14.8); LYMPHOCYTES # (AUTO) 1.6 K/uL (0.8-4.8); LYMPHOCYTES % (AUTO) 7.1 % (20.0-44.0); MEAN CORPUSCULAR HGB CONC 32 g/dl (31.0-36.0); MEAN CORPUSCULAR VOLUME 91 fL (82-100); MONOCYTES # (AUTO) 0.9 K/uL (0.1-1.30); MONOCYTES % (AUTO) 3.9 % (2.0-12.0); NEUTROPHILS # (AUTO) 19.9 K/uL (1.8-8.9); NEUTROPHILS % (AUTO) 88.5 % (43.0-81.0); PLATELET COUNT (AUTO) 99 K/uL (150-450); RED BLOOD CELL COUNT(AUTO) 4.26 MIL/uL (4.0-5.2); WHITE BLOOD COUNT (AUTO) 22.5 K/uL (4.3-11.0)
--- NOTE | 2022-01-01 20:30 | NUR ---
ICU/RN: PT NOTED WITH ELEVATED TEMP. COOLING MEASURES AND ICE PACKS IN PLACE.
[2022-01-01] MEDS: MONTELUKAST SODIUM (10MG) 10 MG TABLET PO SCH (21:27)
--- NOTE | 2022-01-01 22:48 | NUR ---
ICU/RN: AEROBIC BOTTLE GRAM POSITIVE COCCI IN CLUSTERS SEEN ON GRAM STAIN. REPORTED TO HERVE CONNELL NO NEW ORDERS.
[2022-01-02] VITALS (96 sets, daily range): BP systolic 85–125; BP diastolic 46–87
[2022-01-02] MEDS: IPRATROPIUM NEB FS 0.5 MG/2.5 ML AMPUL.NEB IH SCH ×5 (00:01→20:11)
[2022-01-02] MEDS: ALBUTEROL FS 2.5 MG/0.5 ML VIAL.NEB NEB SCH ×5 (00:01→20:11)
[2022-01-02] MEDS: ACETYLCYSTEINE 10% SOLN 400 MG/4 ML VIAL NEB SCH ×4 (00:02→23:48)
[2022-01-02] MEDS: ACETAMINOPHEN 325 MG TABLET PO PRN ×3 (00:49→18:00)
[2022-01-02] MEDS: POTASSIUM CL. PREMIX PERIPHER. 50 ML IV SCH (00:56)
[2022-01-02] MEDS: VANCOMYCIN HCL 0.75 GM in IV D5W 250 ML IV SCH (01:24)
[2022-01-02] MEDS: PROPOFOL 100 ML IV PRN ×5 (03:14→23:15)
[2022-01-02 05:13] LABS: BASOPHILS # (AUTO) 0.1 K/uL (0.0-0.2); BASOPHILS % (AUTO) 0.6 % (0.0-2.0); HEMATOCRIT 38 % (33-45); HEMOGLOBIN 12.1 g/dL (11.5-14.8); LYMPHOCYTES # (AUTO) 1.4 K/uL (0.8-4.8); LYMPHOCYTES % (AUTO) 5.6 % (20.0-44.0); MEAN CORPUSCULAR HGB CONC 32 g/dl (31.0-36.0); MEAN CORPUSCULAR VOLUME 90 fL (82-100); MONOCYTES # (AUTO) 0.7 K/uL (0.1-1.30); MONOCYTES % (AUTO) 2.7 % (2.0-12.0); NEUTROPHILS # (AUTO) 22.8 K/uL (1.8-8.9); NEUTROPHILS % (AUTO) 91.1 % (43.0-81.0); PLATELET COUNT (AUTO) 89 K/uL (150-450); RED BLOOD CELL COUNT(AUTO) 4.19 MIL/uL (4.0-5.2)
[2022-01-02 05:27] LABS: ALBUMIN 2.1 g/dL (3.4-5.0); BILIRUBIN,TOTAL 0.4 mg/dL (0.2-1.0); CALCIUM, SERUM 8.1 mg/dL (8.5-10.1); CREATININE 1.4 mg/dL (0.6-1.3); MAGNESIUM 2.4 mg/dL (1.8-2.4); PHOSPHORUS 3.1 mg/dL (2.5-4.9); POTASSIUM 3.8 mmol/L (3.5-5.1); TOTAL PROTEIN, SERUM 5.5 g/dL (6.4-8.2)
[2022-01-02] MEDS: CEFEPIME 2 GM in IV D5W 100 ML IV SCH (06:00)
[2022-01-02] MEDS: IV LR 1000 ML 1,000 ML IV SCH ×2 (06:00→16:01)
[2022-01-02] MEDS: NOREPINEPHRINE 8 MG in IV NS 0.9% 242 ML IV PRN (06:00)
--- NOTE | 2022-01-02 07:32 | NUR ---
ICU/RN PT RECEIVED IN BED, SEDATED. PT INTUBATED ON MECHANICAL VENTILATOR ETT 7.5, FIO2 40%, PEEP OF 5. SINUS TACH ON MONITOR, HR 140S. GARZA CATH IN PLACE. OGT IN PLACE, NO FEEDING RUNNING. RIGHT IJ TLC IN PLACE RUNNING LEVO AT 0.05MCG/KG/MIN, PROPOFOL AT 40 MCG, AND LR AT 100ML/HR, BP 91/55 MAP 67. BED LOCKED AND IN LOWEST POSITION, CALL LIGHT WITHIN REACH, 3 SIDE RAILS UP.
--- NOTE | 2022-01-02 07:50 | NUR ---
ICU/RN TEMP 100.8. TYLENOL GIVEN BY DATA COMPILER 1 HOUR AGO. COOL MEASURES APPLIES.
[2022-01-02] MEDS: ropiniROLE 0.5 MG TABLET PO SCH (08:19)
--- NOTE | 2022-01-02 08:48 | NUR ---
ICU/RN TEMP 99.3. ICE PACK REMAIN ON PATIENT.
[2022-01-02 08:49] LABS: ABG OXYGEN SATURATION 96.7 % (92.0-98.5); ABG PCO2 29.1 mmHg (35.0-45.0); ABG PH 7.398 (7.350-7.450); ABG PO2 87.6 mmHg (75.0-100.0); AaDO2 164.1 mmHg; MetHb 0.2 % (0.0-1.5); O2Hb 96.5 % (94.0-97.0); PEEP,BG 5 cm H2O; SITE, ABG Right Brachial; VT, ABG 475 mL
[2022-01-02] MEDS: HEPARIN SODIUM, PORCINE 5000 UNITS/1 ML VIAL SQ SCH ×2 (09:11→21:09)
[2022-01-02] MEDS: HYDROCORTISONE SOD SUCCINATE 100 MG/2 ML VIAL IV SCH ×3 (09:40→21:11)
--- NOTE | 2022-01-02 10:16 | NUR ---
ICU/RN NEVAEH CALLED TO UPDATE. NO ANSWER. MESSAGE LEFT WITH UNIT PHONE NUMBER. Addendum: 01/02/22 at 1835 by ANDRES FIELDS RN
--- NOTE | 2022-01-02 10:31 | NUR ---
ICU/RN TALKED TO SISTER NEVAEH, UPDATE ON PT'S CONDITION GIVEN. SISTER VERBALIZES UNDERSTANDING OF POC.
--- NOTE | 2022-01-02 11:16 | NUR ---
ICU/RN PER DR. CORTES, SEDATION VACATION ORDERED. PROPOFOL DECREASED PER PROTOCOL.
[2022-01-02 11:27] LABS: BAND % (MANUAL) 9 % (0.0-5.0); LYMPHOCYTES % (MANUAL) 6 % (16-48); METAMYELOCYTES % 2 % (0-0); MONOCYTES % (MANUAL) 8 % (0-11.0); MYELOCYTES % 2 % (0-0); NEUTROPHILS % (MANUAL) 73 (42-76)
--- NOTE | 2022-01-02 11:50 | NUR ---
ICU/RN PT OFF SEDATION, AWAKE, RESTLESS, FIGHTING VENTILATOR. PT UNABLE TO FOLLOW SIMPLE COMMAND, SHOWING SIGNS OF DISTRESS AND PAIN. PROPOFOL WILL BE RESUMED PER PARAMETER.
[2022-01-02] MEDS: NORTRIPTYLINE HCL 25 MG CAPSULE PO SCH (17:07)
--- NOTE | 2022-01-02 18:04 | NUR ---
ICU/RN TEMPERATURE 99.4. TYLENOL GIVEN THROUGH OG TUBE.
--- NOTE | 2022-01-02 19:30 | NUR ---
RN OPENING NOTES RECEIVED CARE OF PATIENT FROM AM SHIFT NURSE. PATIENT IS SEDATED WITH DIPRIVAN DRIP AT 50 MCG/KG/MIN, PATIENT IS CALM. OPENS EYES. PATIENT NOTED WITH ETT UNDER MECHANICAL VENTILATION WITH ORDERED SETTINGS, TOLERATING WELL, O2 SAT 100%, NO RESPIRATORY COMPROMISE NOTED. PATIENT'S TELE MONITOR READS SINUS TACH WITH HR OF 120, NO ACUTE COMPLICATIONS NOTED. OGT IN PLACE, PATENT, CLAMPED, POSITIVE PLACEMENT BY AUSCULTATION. GARZA CATH IN PLACE DRAINING YELLOW URINE TO GRAVITY. LEVO DRIP RUNNING AT 0.05 MCH/KG/MIN, AND LACTATED RINGERS IV RUNNING AT 100 ML/HR. SAFETY MEASURES IMPLEMENTED PER HOSPITAL PROTOCOLS. WILL CARRY OUT PLAN OF CARE.
[2022-01-02] MEDS: MONTELUKAST SODIUM (10MG) 10 MG TABLET PO SCH (21:11)
[2022-01-03] VITALS (50 sets, daily range): BP systolic 93–126; BP diastolic 49–77
[2022-01-03] MEDS: VANCOMYCIN HCL 0.75 GM in IV D5W 250 ML IV SCH (00:44)
[2022-01-03] MEDS: ALBUTEROL FS 2.5 MG/0.5 ML VIAL.NEB NEB SCH ×4 (01:14→20:03)
[2022-01-03] MEDS: IPRATROPIUM NEB FS 0.5 MG/2.5 ML AMPUL.NEB IH SCH ×4 (01:14→20:03)
[2022-01-03] MEDS: PROPOFOL 100 ML IV PRN ×4 (04:05→19:34)
[2022-01-03 04:07] LABS: BASOPHILS % (AUTO) 0.2 % (0.0-2.0); HEMATOCRIT 33 % (33-45); HEMOGLOBIN 10.6 g/dL (11.5-14.8); LYMPHOCYTES # (AUTO) 0.4 K/uL (0.8-4.8); LYMPHOCYTES % (AUTO) 1.9 % (20.0-44.0); MEAN CORPUSCULAR HGB CONC 32 g/dl (31.0-36.0); MEAN CORPUSCULAR VOLUME 89 fL (82-100); MONOCYTES # (AUTO) 0.3 K/uL (0.1-1.30); MONOCYTES % (AUTO) 1.5 % (2.0-12.0); NEUTROPHILS % (AUTO) 96.4 % (43.0-81.0); PLATELET COUNT (AUTO) 90 K/uL (150-450); RED BLOOD CELL COUNT(AUTO) 3.67 MIL/uL (4.0-5.2); WHITE BLOOD COUNT (AUTO) 20.7 K/uL (4.3-11.0)
[2022-01-03 04:28] LABS: CALCIUM, SERUM 8.2 mg/dL (8.5-10.1); CREATININE 1.4 mg/dL (0.6-1.3); POTASSIUM 3.4 mmol/L (3.5-5.1)
[2022-01-03] MEDS: HYDROCORTISONE SOD SUCCINATE 100 MG/2 ML VIAL IV SCH (05:43)
--- NOTE | 2022-01-03 06:20 | NUR ---
RT Pt recvd with ETT 7.5 @23cm on AC vent settings ordered. No SOB or respiratory distress noted throughout shift. Neb tx given and aaliyah. Suction done Q2/PRN with minimal secretions. Vent is plugged into red outlet with alarms on and audible. Ambu bag at bedside.
[2022-01-03] MEDS: CEFEPIME 2 GM in IV D5W 100 ML IV SCH (06:33)
--- NOTE | 2022-01-03 06:52 | NUR ---
RN CLOSING NOTES WILL ENDORSE CARE OF PATIENT TO AM NURSE. PATIENT WAS TITRATED DOWN AND OFF LEVO DRIP. BP REMAINS WITHIN ORDERED PARAMETERS. FOLLOWED PLAN OF CARE. NO SIGNIFICANT FINDINGS UPON ALL NURSING ASSESSMENTS. REPOSITIONED PATIENT Q2H AND PRN. SAFETY MEASURES KEPT IN PLACE. WILL ENDORSE CARE OF PATIENT TO AM SHIFT NURSE FOR CONTINUITY OF CARE.
--- NOTE | 2022-01-03 07:00 | NUR ---
RN NOTES RECEIVED PT ON BED, INTUBATED AND SEDATED WITH DIPRIVAN DRIP AT 50 MCG/KG/MIN, PATIENT IS CALM. OPENS EYES TO PAINFUL STIMULI, TOLERATING VENT SETTING WELL, O2 SAT WNL, PATIENT'S TELE MONITOR READS SINUS TACH WITH HR OF 10'S, NO ACUTE COMPLICATIONS NOTED. OGT IN PLACE, PATENT, CLAMPED, POSITIVE PLACEMENT BY AUSCULTATION. GARZA CATH IN PLACE DRAINING YELLOW URINE TO GRAVITY. SAFETY MEASURES IMPLEMENTED PER HOSPITAL PROTOCOLS. CONTINUE TO MONITOR .
--- NOTE | 2022-01-03 07:25 | NUR ---
WOUND CARE CONSULT: PT PRESENTS WITH SACRAL INTACT DEEP TISSUE INJURY WITH SURROUNDING SCARRING WELL BILATERAL HEEL SCARRING, PRESENT ON ADMISSION. RECOMMENDATIONS MADE FOR SKIN PROTECTION. DISCUSSED WITH NURSING STAFF. PT IS INCONTINENT OF STOOL. PT IS ON FREDO ISOFLEX LOW AIRLOSS BED. KAYLA ASTUDILLO. IN AGREEMENT WITH PLAN OF CARE. Addendum: 01/03/22 at 0726 by LACIE INTERIANO WNDNU Amended: Links added.
[2022-01-03] MEDS ORDERED: Z GUARD REMEDY 4 OZ OINT TP PRN (07:30)
[2022-01-03] MEDS ORDERED: POTASSIUM CHLORIDE 20 MEQ POWDER PACKET NG SCH (08:00)
[2022-01-03] MEDS: ACETYLCYSTEINE 10% SOLN 400 MG/4 ML VIAL NEB SCH ×3 (08:04→23:36)
[2022-01-03] MEDS: Z GUARD REMEDY 4 OZ OINT TP SCH (08:30)
[2022-01-03] MEDS: ropiniROLE 0.5 MG TABLET PO SCH (08:47)
[2022-01-03] MEDS: HEPARIN SODIUM, PORCINE 5000 UNITS/1 ML VIAL SQ SCH ×2 (09:00→21:00)
--- NOTE | 2022-01-03 09:00 | NUR ---
RN NOTES PLT =90 HEPARIN SQ HELD PER MD ORDER
[2022-01-03] MEDS ORDERED: JEVITY 1.2 CAL 1,000 ML BOTTLE GT PRN (11:00)
[2022-01-03] MEDS: IV D5/ 0.9% NACL 1,000 ML IV SCH ×2 (11:23→23:27)
--- NOTE | 2022-01-03 12:00 | NUR ---
RN NOTES ET TUBE SUCTIONING DONE, VSS STABLE , CONTINUE TO MONITOR
--- NOTE | 2022-01-03 16:56 | NUR ---
RN NOTES REMAINS ON LEVO AT 0.02 MCG/KG/MIN, TOLERAING TF AT 20CC /HR , NO RESIDUAL NOTED, PT ON EAMON SCHNEIDER , T=87.6, SR UP x3, CALL LIGHT WITHIN EASY REACH, BED LOCKED AND IN LOWEST POSITION, REPORT GIVEN TO YA GAXIOLA FOR CONTINUITY OF CARE . Addendum: 01/03/22 at 1702 by DAMARIS SAUL RN PLEASE DISREGARD ABOVE CHARTING , CHARTED ON WRONG PT
--- NOTE | 2022-01-03 17:02 | NUR ---
RN NOTES PT REMAINS INTUBATED AND SEDATED , ON PROPOFOL AT 35 MCG/KG/MIN , NO SIGNFICANT CHANGES NOTED ON THIS SHIFT, WILL ENDORSE TO PERSONAL SERVICE REPRESENTATIVE NURSE FOR CONTINUITY OF CARE .
[2022-01-03] MEDS: NORTRIPTYLINE HCL 25 MG CAPSULE PO SCH (17:10)
--- NOTE | 2022-01-03 17:10 | NUR ---
ODD SHOE EXAMINERRACE BOARD ATTENDANT OF CARE NOTE: TRANSFERRED CARE OF PT AT 1700. REPORT GIVEN BY DAMARIS GAXIOLA AT BEDSIDE. PT. IN BED, SEDATED, CALM AND COOPERATIVE, RESPONSIVE TO TACTILE AND PAINFUL STIMULI. NO S/S OF PAIN/DISCOMFORT. PT. ON ETT - 7.5/; AC - 24; VT - 475; FIO2 - 40%; PEEP - 5.NO S/S OF RESPIRATORY DISTRESS. GROUP LEADER SEMICONDUCTOR TESTING READS SINUS TACH WITH HR OF 125 BPM. HAS GARZA CATH DRAINING CLEAR YELLOW URINE VIA GRAVITY. SKIN ISSUES NOTED. WILL DO WOUND TREATMENT ORDERED. PT. ON BILATERAL SOFT RESTRAINTS, PALPABLE PULSES NOTED ON L AND R RADIAL ARTERY. PT. HAS OG TUBE WITH JEVITY RUNNING AT 20ML/HR. NO GASTRIC RESIDUAL NOTED. IV ACCESS R FA #20G, SALINE LOCKED; L HAND #24G, SALINE LOCKED; R IJ WITH D5 NS RUNNING AT 75ML/HR AND DIPRIVAN RUNNING AT 35 MCG/KG/MIN. IV DRESSINGS C/D/I WITH NO S/S OF INFILTRATION. SAFETY MEASURES IN PLACE: BED IN LOWEST AND LOCKED POSITION, HOB ELEVATED AT 30 DEGREES, BED ALARM ON, CALL LIGHT WITHIN REACH. WILL TURN AND REPOSITION AT LEAST Q2H AND WILL CONTINUE TO MONITOR FOR ANY CHANGES.
--- NOTE | 2022-01-03 19:20 | NUR ---
MECHANIC MARINE ENGINE CLOSING NOTE: PT. REMAINS IN BED, SEDATED, CALM AND COOPERATIVE, RESPONSIVE TO TACTILE AND PAINFUL STIMULI. NO S/S OF PAIN/DISCOMFORT. PT. ON ETT - 7.5/22; AC - 24; VT - 475; FIO2 - 40%; PEEP - 5. NO S/S OF RESPIRATORY DISTRESS. EDGE GLUER READS SINUS TACH WITH HR OF 126 BPM AT THIS TIME. GARZA CATH DRAINED 450 ML CLEAR YELLOW URINE THIS SHIFT. WOUND TREATMENT DONE ORDERED. PT. REMAINS ON BILATERAL SOFT RESTRAINTS, PALPABLE PULSES NOTED ON L AND R RADIAL ARTERY. OG TUBE WITH JEVITY RUNNING NOW RUNNING AT 35ML/HR. NO GASTRIC RESIDUAL NOTED. IV ACCESS R FA #20G, SALINE LOCKED; L HAND #24G, SALINE LOCKED; R IJ WITH D5 NS RUNNING AT 75ML/HR AND DIPRIVAN RUNNING AT 35 MCG/KG/MIN. IV DRESSINGS C/D/I WITH NO S/S OF INFILTRATION. SAFETY MEASURES MAINTAINED: BED IN LOWEST AND LOCKED POSITION, HOB ELEVATED AT 30 DEGREES, BED ALARM ON, CALL LIGHT WITHIN REACH. TURNED AND REPOSITIONED AT LEAST Q2H. ENDORSED CONTINUITY OF CARE TO QA MANAGER RN.
[2022-01-03] MEDS: JEVITY 1.2 CAL 1,000 ML BOTTLE GT PRN (19:34)
--- NOTE | 2022-01-03 19:45 | NUR ---
RN OPENING NOTES RECEIVED CARE OF PATIENT FROM AM SHIFT NURSE, PATIENT IS SEDATED WITH DIPRIVAN DRIP AT 35 MCG/KG/MIN, PATIENT OPENS EYES, IS CALM AND RELAXED. REPOSITIONED FOR COMFORT, NO SIGNS OF PAIN USING FLACC SCALE. PATIENT IS INTUBATED WITH ETT UNDER MECHANICAL VENTILATION WITH ORDERED SETTINGS, TOLERATING WELL, NO SOB NOTED, O2 SAT 96%. PATIENT IS SINUS TACH WITH HR IN THE 120'S- 130'S, NO DISTRESS NOTED ON PATIENT. SAFETY MEASURES IMPLEMENTED PER HOSPITAL PROTOCOLS. WILL CARRY OUT PLAN OF CARE.
--- NOTE | 2022-01-03 20:03 | NUR ---
RCVD PT ORALLY INTUBATED W/ ETT 7.5 SECURED @ 23 CM LIP LINE ON [facility] VENT SETTINGS OF AC 24, VT 475, FIO2 40%, PEEP 5. BREATHING TX GIVEN PER MD'S ORDER, NO ADVERSE REACTION NOTED. VENT PLUGGED INTO RED OUTLET, VENT ALARMS ON AND AUDIBLE. NO RESPIRATORY DISTRESS NOTED AT THIS TIME. WILL CONTINUE TO MONITOR T/O SHIFT.
[2022-01-03] MEDS: MONTELUKAST SODIUM (10MG) 10 MG TABLET PO SCH (21:31)
[2022-01-04] VITALS (57 sets, daily range): BP systolic 67–111; BP diastolic 47–90
[2022-01-04] MEDS: ALBUTEROL FS 2.5 MG/0.5 ML VIAL.NEB NEB SCH ×4 (00:31→20:14)
[2022-01-04] MEDS: IPRATROPIUM NEB FS 0.5 MG/2.5 ML AMPUL.NEB IH SCH ×4 (00:31→20:14)
[2022-01-04] MEDS: VANCOMYCIN HCL 0.75 GM in IV D5W 250 ML IV SCH (01:26)
[2022-01-04] MEDS: PROPOFOL 100 ML IV PRN (03:16)
[2022-01-04 04:06] LABS: HEMATOCRIT 30 % (33-45); LYMPHOCYTES # (AUTO) 0.6 K/uL (0.8-4.8); LYMPHOCYTES % (AUTO) 3.7 % (20.0-44.0); MEAN CORPUSCULAR HGB CONC 33 g/dl (31.0-36.0); MEAN CORPUSCULAR VOLUME 89 fL (82-100); MONOCYTES # (AUTO) 0.5 K/uL (0.1-1.30); MONOCYTES % (AUTO) 2.7 % (2.0-12.0); NEUTROPHILS % (AUTO) 93.6 % (43.0-81.0); PLATELET COUNT (AUTO) 101 K/uL (150-450); WHITE BLOOD COUNT (AUTO) 17.1 K/uL (4.3-11.0)
[2022-01-04 04:16] LABS: CALCIUM, SERUM 8.1 mg/dL (8.5-10.1); CREATININE 1.2 mg/dL (0.6-1.3); MAGNESIUM 2.3 mg/dL (1.8-2.4); PHOSPHORUS 2.5 mg/dL (2.5-4.9); POTASSIUM 3.1 mmol/L (3.5-5.1)
[2022-01-04 05:15] LABS: BAND % (MANUAL) 3 % (0.0-5.0); BASOPHILS % (MANUAL) 0 % (0.0-2.0); EOSINOPHILS % (MANUAL) 0 % (0-4); LYMPHOCYTES % (MANUAL) 5 % (16-48); MONOCYTES % (MANUAL) 3 % (0-11.0); NEUTROPHILS % (MANUAL) 89 (42-76)
[2022-01-04] MEDS: CEFEPIME 2 GM in IV D5W 100 ML IV SCH (06:01)
[2022-01-04] MEDS: ACETYLCYSTEINE 10% SOLN 400 MG/4 ML VIAL NEB SCH ×2 (07:35→16:38)
--- NOTE | 2022-01-04 07:36 | NUR ---
N CLOSING NOTES ENDORSED CARE OF PATIENT TO AM NURSE. BP REMAINS WITHIN ORDERED PARAMETERS. FOLLOWED PLAN OF CARE. NO SIGNIFICANT FINDINGS UPON ALL NURSING ASSESSMENTS. REPOSITIONED PATIENT Q2H AND PRN. SAFETY MEASURES KEPT IN PLACE. ENDORSED CARE OF PATIENT TO AM SHIFT NURSE FOR CONTINUITY OF CARE.
--- NOTE | 2022-01-04 07:36 | NUR ---
RN NOTES RECEIVED PATIENT ETT /VENT SETTING. PATIENT SEDATED DIPRIVAN 35MCG/KG/MIN, PATIENT MODERATED AGITATED TITRATED DIPRIVAN PER PROTOCOL, P-121, R-29 TO 31. PATIENT TOTAL CARE, QUADRIPLEGIC, SWOLLEN BILATERAL LOWER, AND UPPER EXTREMITIES. NO RESIDUAL, RUNNING JEVITY 1.2 @35 ML/HR GOAL IS 50ML. RECHECKED BILATERAL WRIST RESTRAIN, ASSIST TURN AND REPOSITION, KEEP HOB ELEVATED. IV ACCESS ON RIJ AREA SWOLLEN AREA. WILL FOLLOW UP.
[2022-01-04] MEDS ORDERED: POTASSIUM CHLORIDE 20 MEQ POWDER PACKET GT ONE (08:00)
[2022-01-04] MEDS: ropiniROLE 0.5 MG TABLET PO SCH (08:04)
[2022-01-04] MEDS: HEPARIN SODIUM, PORCINE 5000 UNITS/1 ML VIAL SQ SCH ×2 (08:05→21:18)
[2022-01-04] MEDS: Z GUARD REMEDY 4 OZ OINT TP SCH (08:06)
--- NOTE | 2022-01-04 08:23 | NUR ---
RN NOTES PER Dr TAPIA GET VERBAL ORDER STOP SEDATION FOR WEANING FROM VENT, SIMV MODE. RT AWARE OF, AND IN THE BEDSIDE. ORDER TAKEN AND CARRIED OUT, WILL FOLLOW UP.
[2022-01-04] MEDS ORDERED: MIDAZOLAM HCL 200 MG in IV NS 0.9% 60 ML IV PRN (09:00)
[2022-01-04] MEDS ORDERED: FENTANYL CITRAT IV 2,500 MCG in IV NS 0.9% 200 ML IV PRN (09:30)
[2022-01-04] MEDS: MIDAZOLAM HCL 100 MG in IV NS 0.9% 80 ML IV PRN (09:42)
--- NOTE | 2022-01-04 09:45 | NUR ---
RN NOTES PATIENT FAIL WEANING FROM VENT , TRIGLYCERIDE LEVEL IS 505. NOTIFIED Dr GARCÍA, AND GET NEW VERBAL ORDER FENTANYL DRIP , AND VERSED DRIP TITRATE PER PROTOCOL. ORDER TAKEN AND CARRIED OUT.
[2022-01-04] MEDS: FENTANYL CITRAT IV 2,500 MCG in IV NS 0.9% 200 ML IV PRN (09:46)
[2022-01-04] MEDS: IV D5/ 0.9% NACL 1,000 ML IV SCH (13:07)
--- NOTE | 2022-01-04 13:50 | NUR ---
RN NOTES SISTER NEXT TO THE BED , AND WAITING PULMONALOGIST Dr GARCÍA FOR FINAL DECISION. PER FAMILY has elected against a tracheostomy, requests DNI status, G-tube to be decided on later depending on clinical course.
[2022-01-04] MEDS: NORTRIPTYLINE HCL 25 MG CAPSULE PO SCH (18:00)
[2022-01-04] MEDS: PHENYLEPHRINE 50 MG in IV NS 0.9% 245 ML IV PRN (18:45)
--- NOTE | 2022-01-04 18:46 | NUR ---
rn notes started norsynephrine 0.5 mcg/kg/min at this time bp 86/63, p-102, r-30. also infusing fentanyl 50 mcg/kg/min, versed 3 mg/ml/min, and D5NS@75 ml/hr on RIJ area intact. PM care done, mouth care, patient has less oral secretion, Chow draining via gravity, assist turn and reposition q 2 hr. running Jevity 1.2 @50ml/hr intact. endorsed oncoming nurse carmina.
[2022-01-04] MEDS: MONTELUKAST SODIUM (10MG) 10 MG TABLET PO SCH (21:17)
[2022-01-05] VITALS (93 sets, daily range): BP systolic 89–118; BP diastolic 49–103
[2022-01-05] MEDS: IPRATROPIUM NEB FS 0.5 MG/2.5 ML AMPUL.NEB IH SCH ×4 (00:34→20:10)
[2022-01-05] MEDS: ALBUTEROL FS 2.5 MG/0.5 ML VIAL.NEB NEB SCH ×4 (00:34→20:10)
[2022-01-05] MEDS: ACETYLCYSTEINE 10% SOLN 400 MG/4 ML VIAL NEB SCH ×4 (00:34→23:26)
[2022-01-05] MEDS: VANCOMYCIN HCL 0.75 GM in IV D5W 250 ML IV SCH (01:28)
[2022-01-05] MEDS: IV D5/ 0.9% NACL 1,000 ML IV SCH (01:41)
[2022-01-05] MEDS: JEVITY 1.2 CAL 1,000 ML BOTTLE GT PRN (01:46)
[2022-01-05 04:42] LABS: BASOPHILS % (AUTO) 0.2 % (0.0-2.0); EOSINOPHILS % (AUTO) 1.1 % (0.0-6.0); HEMATOCRIT 31 % (33-45); HEMOGLOBIN 9.8 g/dL (11.5-14.8); LYMPHOCYTES # (AUTO) 0.9 K/uL (0.8-4.8); LYMPHOCYTES % (AUTO) 6.9 % (20.0-44.0); MEAN CORPUSCULAR HGB CONC 32 g/dl (31.0-36.0); MEAN CORPUSCULAR VOLUME 91 fL (82-100); MONOCYTES # (AUTO) 0.6 K/uL (0.1-1.30); MONOCYTES % (AUTO) 4.8 % (2.0-12.0); PLATELET COUNT (AUTO) 171 K/uL (150-450); RED BLOOD CELL COUNT(AUTO) 3.35 MIL/uL (4.0-5.2); WHITE BLOOD COUNT (AUTO) 12.6 K/uL (4.3-11.0)
[2022-01-05 04:54] LABS: CALCIUM, SERUM 8.1 mg/dL (8.5-10.1); CREATININE 0.7 mg/dL (0.6-1.3); POTASSIUM 4.1 mmol/L (3.5-5.1)
[2022-01-05] MEDS: MIDAZOLAM HCL 100 MG in IV NS 0.9% 80 ML IV PRN (06:15)
[2022-01-05] MEDS: FENTANYL CITRAT IV 2,500 MCG in IV NS 0.9% 200 ML IV PRN (06:17)
[2022-01-05] MEDS: CEFEPIME 2 GM in IV D5W 100 ML IV SCH (06:26)
[2022-01-05 06:53] LABS: ABG BASE EXCESS -6.9 mmol/L; ABG OXYGEN SATURATION 95.9 % (92.0-98.5); ABG PCO2 28.9 mmHg (35.0-45.0); ABG PH 7.386 (7.350-7.450); ABG PO2 85.4 mmHg (75.0-100.0); AaDO2 166.6 mmHg; COHb 0.3 % (0.5-1.5); MetHb 0.2 % (0.0-1.5); O2Hb 95.4 % (94.0-97.0); PEEP,BG 5 cm H2O; SITE, ABG Left Radial; VENT MODE, BG AC 24 475 40% +5; VT, ABG 475 mL
--- NOTE | 2022-01-05 07:25 | NUR ---
ICU/RN PT RECEIVED IN BED, SEDATED. PT INTUBATED 7.5/ FIO2 40% AND PEEP OF 5. SAT 98% ON BEDSIDE MONITOR, NO SIGNS OF LABORED BREATHING AT THIS TIME. PT SINUS TACH AT 105 ON BEDSIDE MONITOR. GARZA CATH IN PLACE AND PATENT. OGT IN PLACE RUNNING JEVITY AT 50ML/HR, NO RESIDUAL, PT TOLERATING FEEDING WELL. RIGHT IJ TLC, RIGHT UA 20G IV AND LEFT HAND 24G IV IN PLACE. D5NS AT 75ML/HR, JESSICA AT 0.5MCG/KG/MIN, FETANYL AT 50MCG/HR AND VERSED AT 4MG/HR RUNNING. BED LOCKED AND IN LOWEST POSITION, CALL LIGHT WITHIN REACH, 3 SIDE RAILS UP.
[2022-01-05] MEDS: ropiniROLE 0.5 MG TABLET PO SCH (08:17)
[2022-01-05] MEDS: Z GUARD REMEDY 4 OZ OINT TP SCH (08:17)
[2022-01-05] MEDS: HEPARIN SODIUM, PORCINE 5000 UNITS/1 ML VIAL SQ SCH ×2 (08:18→21:37)
--- NOTE | 2022-01-05 09:36 | NUR ---
ICU/RN PER DR. GARCÍA, ATTEMPT TO TITRATE DOWN FETANYL DRIP TOLERATED BY PT.
[2022-01-05] MEDS: VANCOMYCIN 500 MG in IV D5W 100ml IV SCH (12:14)
[2022-01-05] MEDS: CITRIC ACID/SODIUM CITRATE (BICITRA)15 ML UDC PO SCH ×3 (12:14→21:36)
[2022-01-05] MEDS: PHENYLEPHRINE 50 MG in IV NS 0.9% 245 ML IV PRN (16:33)
[2022-01-05] MEDS: NORTRIPTYLINE HCL 25 MG CAPSULE PO SCH (17:03)
[2022-01-05] MEDS: MONTELUKAST SODIUM (10MG) 10 MG TABLET PO SCH (21:36)
[2022-01-06] VITALS (91 sets, daily range): BP systolic 88–118; BP diastolic 53–92
[2022-01-06] MEDS: VANCOMYCIN 500 MG in IV D5W 100ml IV SCH ×2 (01:19→12:36)
[2022-01-06] MEDS: ALBUTEROL FS 2.5 MG/0.5 ML VIAL.NEB NEB SCH ×4 (01:35→20:17)
[2022-01-06] MEDS: IPRATROPIUM NEB FS 0.5 MG/2.5 ML AMPUL.NEB IH SCH ×4 (01:35→20:17)
[2022-01-06 04:18] LABS: BASOPHILS % (AUTO) 0.2 % (0.0-2.0); EOSINOPHILS % (AUTO) 1.7 % (0.0-6.0); HEMATOCRIT 29 % (33-45); HEMOGLOBIN 9.4 g/dL (11.5-14.8); MEAN CORPUSCULAR HGB CONC 33 g/dl (31.0-36.0); MEAN CORPUSCULAR VOLUME 91 fL (82-100); MONOCYTES # (AUTO) 0.7 K/uL (0.1-1.30); MONOCYTES % (AUTO) 6.2 % (2.0-12.0); NEUTROPHILS # (AUTO) 9.1 K/uL (1.8-8.9); NEUTROPHILS % (AUTO) 82.9 % (43.0-81.0); PLATELET COUNT (AUTO) 204 K/uL (150-450); RED BLOOD CELL COUNT(AUTO) 3.18 MIL/uL (4.0-5.2); WHITE BLOOD COUNT (AUTO) 10.9 K/uL (4.3-11.0)
[2022-01-06 04:30] LABS: CALCIUM, SERUM 8.3 mg/dL (8.5-10.1); CREATININE 0.6 mg/dL (0.6-1.3); POTASSIUM 4.4 mmol/L (3.5-5.1)
[2022-01-06] MEDS: MIDAZOLAM HCL 100 MG in IV NS 0.9% 80 ML IV PRN (05:48)
[2022-01-06] MEDS: FENTANYL CITRAT IV 2,500 MCG in IV NS 0.9% 200 ML IV PRN (05:49)
[2022-01-06] MEDS: CEFEPIME 2 GM in IV D5W 100 ML IV SCH (05:55)
--- NOTE | 2022-01-06 07:30 | NUR ---
RN OPENING NOTE PT OBSERVED IN BED WITH HOB >30. PT IS ON MECHANICAL VENT WITH ALL PRESCRIBED SETTINGS TOLERATING WELL NO SIGNS OF DISTRESS OR LABORED BREATHING O2 SAT 100% AND SEDATED AT THIS TIME. NG TUBE IS IN PLACE WITH POSITIVE PLACEMENT INFUSING WITH JEVITY @50ML/HR AND MINIMAL RESIDUAL <20ML. FC IS IN PLACE DRAINING URINE TO GRAVITY. IV ACCESS R IJ TLC AND L ESPINAL INFUSING WITH JESSICA @0.5MCG/HR, FENTANYL @ 75MCG/HR AND VERSED @ 5MG/HR. BED IS LOCKED IN LOWEST POSITION X2 BED RAILS UP AND ALL HOSPITAL SAFETY MEASURES ARE IN PLACE. WILL CONTINUE TO MONITOR THIS SHIFT.
[2022-01-06] MEDS: ACETYLCYSTEINE 10% SOLN 400 MG/4 ML VIAL NEB SCH ×3 (07:36→23:50)
[2022-01-06] MEDS: Z GUARD REMEDY 4 OZ OINT TP SCH (08:51)
[2022-01-06] MEDS: CITRIC ACID/SODIUM CITRATE (BICITRA)15 ML UDC PO SCH ×4 (08:55→21:20)
[2022-01-06] MEDS: ropiniROLE 0.5 MG TABLET PO SCH (08:56)
[2022-01-06] MEDS: DOCUSATE SODIUM LIQ 100 MG/10 ML UDC NG SCH (09:21)
[2022-01-06 10:05] LABS: ABG BASE EXCESS -6.2 mmol/L; ABG OXYGEN SATURATION 96.5 % (92.0-98.5); ABG PCO2 29.5 mmHg (35.0-45.0); ABG PH 7.394 (7.350-7.450); ABG PO2 88.1 mmHg (75.0-100.0); AaDO2 163.2 mmHg; COHb 0.3 % (0.5-1.5); MetHb 0.2 % (0.0-1.5); PEEP,BG 5 cm H2O; SITE, ABG Right Radial; VT, ABG 475 mL
[2022-01-06] MEDS: HEPARIN SODIUM, PORCINE 5000 UNITS/1 ML VIAL SQ SCH ×2 (10:23→21:20)
[2022-01-06] MEDS ORDERED: MEROPENEM 1 G in IV NS 0.9% 100 ML IV ONE (11:00)
[2022-01-06] MEDS: JEVITY 1.2 CAL 1,000 ML BOTTLE GT PRN (13:03)
[2022-01-06] MEDS: PRECEDEX 400 MCG/100 ML BOTTLE 100 ML IV PRN (14:16)
[2022-01-06] MEDS: NORTRIPTYLINE HCL 25 MG CAPSULE PO SCH (17:31)
[2022-01-06] MEDS: PHENYLEPHRINE 50 MG in IV NS 0.9% 245 ML IV PRN (17:37)
[2022-01-06] MEDS: MEROPENEM 1 G in IV NS 0.9% 100 ML IV SCH (18:03)
--- NOTE | 2022-01-06 18:52 | NUR ---
RN CLOSING NOTE PT IN BED WITH HOB >30. PT IS ON MECHANICAL VENT WITH ALL PRESCRIBED SETTINGS TOLERATING WELL NO SIGNS OF DISTRESS OR LABORED BREATHING O2 SAT 100% AND SEDATED AT THIS TIME. PER DR. GARCÍA, WEAN OFF FENTANYL AND CONTINUE WITH PRECEDEX. NG TUBE IS IN PLACE WITH POSITIVE PLACEMENT INFUSING WITH JEVITY @50ML/HR AND MINIMAL RESIDUAL <10ML. FC IS IN PLACE DRAINING URINE TO GRAVITY -600ML. NO BM. IV ACCESS R IJ TLC AND L ESPINAL INFUSING WITH JESSICA @0.5MCG/HR, FENTANYL IS ON HOLD AT THIS TIME, PRECEDEX @0.2MCG AND VERSED @ 5MG/HR. BED IS LOCKED IN LOWEST POSITION X2 BED RAILS UP AND ALL HOSPITAL SAFETY MEASURES ARE IN PLACE. WILL ENDORSE TO COMMERCIAL PROJECT MANAGER NURSE FOR MARY.
--- NOTE | 2022-01-06 19:10 | NUR ---
RN OPENING NOTES RECEIVED PATIENT ON BED, SEDATED. PT. ON ETT SIZE 7.5, 22 CM BY THE LIP, WITH VENT SETTINGS AC-24, TV- 775, FIO2-40%, PEEP- 5, SATING AT 98%. RESPIRATORY EVEN AND UNLABORED, NO SOB NOTED. AFEBRILE, NO S/S OF DISTRESS NOTED. WITH RIGHT IJ TLC AND LEFT HAND # 24, PATENT, INTACT, FLUSHED WITH NS. NO S/S OF INFILTRATION NOTED. WITH JESSICA @ 0.5MCG/RACHELLE/MIN, VERSED @ 5 MG/HR AND PRECEDEX @ 0.2 MCG/KG/HR. OGT PATENT AND INTACT, VERIFIED PLACEMENT BY AUSCULTATION, NO RESIDUAL NOTED UPON ASPIRATION, FLUSHED WITH WATER, RUNNING WITH JEVITY 1.2 @ 50 ML/HR, ELEVATE HEAD OF BED. GARZA CATHETER PATENT INTACT DRAINING CLEAR YELLOW URINE VIA GRAVITY. REPOSITION PATIENT EVERY 2 HRS. ALL SAFETY PRECAUTION PROVIDED, BED IN LOWEST POSITION, LOCKED. BED ALARM ARMED. CALL LIGHT WITH IN REACH. CONTINUE TO MONITOR.
[2022-01-06] MEDS: MONTELUKAST SODIUM (10MG) 10 MG TABLET PO SCH (21:20)
[2022-01-07] VITALS (87 sets, daily range): BP systolic 76–138; BP diastolic 44–95
[2022-01-07] MEDS: IPRATROPIUM NEB FS 0.5 MG/2.5 ML AMPUL.NEB IH SCH ×4 (01:05→20:05)
[2022-01-07] MEDS: ALBUTEROL FS 2.5 MG/0.5 ML VIAL.NEB NEB SCH ×4 (01:05→20:05)
[2022-01-07] MEDS: MIDAZOLAM HCL 100 MG in IV NS 0.9% 80 ML IV PRN (01:36)
[2022-01-07] MEDS: VANCOMYCIN 500 MG in IV D5W 100ml IV SCH ×3 (01:44→13:59)
[2022-01-07] MEDS: MEROPENEM 1 G in IV NS 0.9% 100 ML IV SCH ×3 (03:16→18:28)
[2022-01-07 05:16] LABS: BASOPHILS # (AUTO) 0.1 K/uL (0.0-0.2); BASOPHILS % (AUTO) 0.9 % (0.0-2.0); EOSINOPHILS % (AUTO) 1.7 % (0.0-6.0); HEMATOCRIT 30 % (33-45); HEMOGLOBIN 9.9 g/dL (11.5-14.8); LYMPHOCYTES # (AUTO) 1.2 K/uL (0.8-4.8); LYMPHOCYTES % (AUTO) 8.6 % (20.0-44.0); MEAN CORPUSCULAR HGB CONC 33 g/dl (31.0-36.0); MEAN CORPUSCULAR VOLUME 90 fL (82-100); MONOCYTES # (AUTO) 0.9 K/uL (0.1-1.30); NEUTROPHILS # (AUTO) 11.1 K/uL (1.8-8.9); NEUTROPHILS % (AUTO) 81.8 % (43.0-81.0); PLATELET COUNT (AUTO) 346 K/uL (150-450); RED BLOOD CELL COUNT(AUTO) 3.38 MIL/uL (4.0-5.2); WHITE BLOOD COUNT (AUTO) 13.5 K/uL (4.3-11.0)
[2022-01-07 05:30] LABS: CALCIUM, SERUM 8.3 mg/dL (8.5-10.1); CREATININE 0.6 mg/dL (0.6-1.3); POTASSIUM 4.3 mmol/L (3.5-5.1)
--- NOTE | 2022-01-07 07:10 | NUR ---
RN NOTES PATIENT STILL SEDATED. REMAIN STABLE THROUGH OUT THE SHIFT, VENT SETTINGS TOLERATED WELL. RESPIRATORY EVEN AND UNLABORED, NO SOB NOTED. REMAIN AFEBRILE, NO S/S OF DISTRESS NOTED. WITH JESSICA @ 0.5MCG/RACHELLE/MIN, VERSED @ 5 MG/HR AND PRECEDEX @ 0.2 MCG/KG/HR. OGT PATENT AND INTACT, VERIFIED PLACEMENT BY AUSCULTATION, NO RESIDUAL NOTED UPON ASPIRATION, FLUSHED WITH WATER, RUNNING WITH JEVITY 1.2 @ 50 ML/HR, HEAD OF BED KEPT ELEVATED. GARZA CATHETER PATENT INTACT DRAINING CLEAR YELLOW URINE VIA GRAVITY. REPOSITION PATIENT EVERY 2 HRS. ALL DUE MEDS GIVEN. ALL SAFETY PRECAUTION PROVIDED, BED IN LOWEST POSITION, LOCKED. BED ALARM ARMED. CALL LIGHT WITH IN REACH. REPORT GIVEN TO MORNING SHIFT NURSE FOR CONTINUITY OF CARE.
[2022-01-07] MEDS: ACETYLCYSTEINE 10% SOLN 400 MG/4 ML VIAL NEB SCH ×2 (07:14→13:36)
--- NOTE | 2022-01-07 07:30 | NUR ---
RN OPENING NOTE PT IN BED WITH HOB >30. PT IS ON MECHANICAL VENT WITH ALL PRESCRIBED SETTINGS TOLERATING WELL NO SIGNS OF DISTRESS OR LABORED BREATHING O2 SAT 100% AND SEDATED AT THIS TIME. NG TUBE IS IN PLACE WITH POSITIVE PLACEMENT INFUSING WITH JEVITY @50ML/HR. FC IS IN PLACE DRAINING URINE TO GRAVITY. NO BM OVER NIGHT. IV ACCESS R IJ TLC INFUSING WITH JESSICA @0.5MCG/HR, FENTANYL IS ON HOLD AT THIS TIME, PRECEDEX @0.2MCG AND VERSED @ 5MG/HR. BED IS LOCKED IN LOWEST POSITION X2 BED RAILS UP AND ALL HOSPITAL SAFETY MEASURES ARE IN PLACE. WILL CONTINUE TO MONITOR THIS SHIFT.
[2022-01-07] MEDS: CITRIC ACID/SODIUM CITRATE (BICITRA)15 ML UDC PO SCH ×4 (08:56→21:12)
[2022-01-07] MEDS: ropiniROLE 0.5 MG TABLET PO SCH (08:56)
[2022-01-07] MEDS: DOCUSATE SODIUM LIQ 100 MG/10 ML UDC NG SCH (08:56)
[2022-01-07] MEDS: HEPARIN SODIUM, PORCINE 5000 UNITS/1 ML VIAL SQ SCH ×2 (08:58→21:14)
[2022-01-07] MEDS: Z GUARD REMEDY 4 OZ OINT TP SCH (08:58)
[2022-01-07] MEDS: IV NS 0.9% 250 ML IV PRN (10:25)
[2022-01-07] MEDS: ACETAMINOPHEN 325 MG TABLET PO PRN (12:46)
[2022-01-07] MEDS: PRECEDEX 400 MCG/100 ML BOTTLE 100 ML IV PRN ×2 (14:55→21:46)
[2022-01-07] MEDS ORDERED: LORAZEPAM INJ 2 MG/ML VIAL IV ONE (17:30)
[2022-01-07] MEDS ORDERED: LEVETIRACETAM SOL (5 ML) 100 MG/ML UDC GT ONE (17:30)
[2022-01-07] MEDS: NORTRIPTYLINE HCL 25 MG CAPSULE PO SCH (18:28)
--- NOTE | 2022-01-07 19:05 | NUR ---
N OPENING NOTES RECEIVED PATIENT ON BED, CALM AND COOPERATIVE. PT. ON ETT SIZE 7.5, 22 CM BY THE LIP, WITH VENT SETTINGS AC-24, TV- 475, FIO2-40%, PEEP- 5, SATING AT 98%. RESPIRATORY EVEN AND UNLABORED, NO SOB NOTED. AFEBRILE, NO S/S OF DISTRESS NOTED. WITH RIGHT IJ TLC AND LEFT HAND # 24, PATENT, INTACT, FLUSHED WITH NS. NO S/S OF INFILTRATION NOTED. WITH JESSICA @ 0.2MCG/RACHELLE/MIN AND PRECEDEX @ 0.5 MCG/KG/HR. OGT PATENT AND INTACT, VERIFIED PLACEMENT BY AUSCULTATION, WITH 30ML RESIDUAL NOTED UPON ASPIRATION AND PUSHED IT BACK, FLUSHED WITH WATER, RUNNING WITH JEVITY 1.2 @ 50 ML/HR, ELEVATE HEAD OF BED. GARZA CATHETER PATENT INTACT DRAINING CLEAR YELLOW URINE VIA GRAVITY. REPOSITION PATIENT EVERY 2 HRS. ALL SAFETY PRECAUTION PROVIDED, BED IN LOWEST POSITION, LOCKED. BED ALARM ARMED. CALL LIGHT WITH IN REACH. CONTINUE TO MONITOR.
--- NOTE | 2022-01-07 19:32 | NUR ---
RN CLOSING NOTE PT IN BED WITH HOB >30. PT IS ON MECHANICAL VENT WITH ALL PRESCRIBED SETTINGS TOLERATING WELL NO SIGNS OF DISTRESS OR LABORED BREATHING O2 SAT 100%. NG TUBE IS IN PLACE WITH POSITIVE PLACEMENT INFUSING WITH JEVITY @50ML/HR. FC IS IN PLACE DRAINING URINE TO GRAVITY -650ML. 1BM THIS SHIFT. IV ACCESS R IJ TLC INFUSING WITH JESSICA @0.2MCG/HR AND PRECEDEX @0.5MCG. BED IS LOCKED IN LOWEST POSITION X2 BED RAILS UP AND ALL HOSPITAL SAFETY MEASURES ARE IN PLACE. WILL ENDORSE TO REGIONAL SALES ASSOCIATE NURSE FOR MARY.
[2022-01-07] MEDS: MONTELUKAST SODIUM (10MG) 10 MG TABLET PO SCH (21:12)
[2022-01-07] MEDS: PHENYLEPHRINE 50 MG in IV NS 0.9% 245 ML IV PRN (21:34)
[2022-01-07] MEDS: JEVITY 1.2 CAL 1,000 ML BOTTLE GT PRN (22:03)
[2022-01-08] VITALS (52 sets, daily range): BP systolic 49–143; BP diastolic 19–97
[2022-01-08] MEDS ORDERED: LEVETIRACETAM SOL (5 ML) 100 MG/ML UDC GT SCH
--- NOTE | 2022-01-08 00:20 | NUR ---
RN NOTES PATIENT NOTED WITH TEMP- 101.4, COOLING MEASURE PROVIDED, ACETAMINOPHEN 650 MG GIVEN, CONTINUE TO MONITOR.
[2022-01-08] MEDS: VANCOMYCIN 500 MG in IV D5W 100ml IV SCH ×2 (00:23→14:18)
[2022-01-08] MEDS: ACETAMINOPHEN 325 MG TABLET PO PRN (00:23)
--- NOTE | 2022-01-08 01:00 | NUR ---
RN NOTES TEMPERATURE RECHECKED, OBTAINED 100.1 FAHRENHEIT, CONTINUE COOLING MEASURE. CONTINUE TO MONITOR
[2022-01-08] MEDS: ALBUTEROL FS 2.5 MG/0.5 ML VIAL.NEB NEB SCH ×4 (02:00→19:30)
[2022-01-08] MEDS: IPRATROPIUM NEB FS 0.5 MG/2.5 ML AMPUL.NEB IH SCH ×4 (02:00→19:30)
[2022-01-08] MEDS: ACETYLCYSTEINE 10% SOLN 400 MG/4 ML VIAL NEB SCH ×3 (02:00→14:24)
[2022-01-08] MEDS: MEROPENEM 1 G in IV NS 0.9% 100 ML IV SCH ×2 (03:09→11:00)
[2022-01-08 04:00] LABS: BASOPHILS % (AUTO) 0.1 % (0.0-2.0); EOSINOPHILS % (AUTO) 0.9 % (0.0-6.0); HEMATOCRIT 30 % (33-45); HEMOGLOBIN 9.8 g/dL (11.5-14.8); LYMPHOCYTES # (AUTO) 1.7 K/uL (0.8-4.8); LYMPHOCYTES % (AUTO) 11.9 % (20.0-44.0); MEAN CORPUSCULAR HGB CONC 32 g/dl (31.0-36.0); MEAN CORPUSCULAR VOLUME 91 fL (82-100); NEUTROPHILS # (AUTO) 11.1 K/uL (1.8-8.9); NEUTROPHILS % (AUTO) 80.1 % (43.0-81.0); PLATELET COUNT (AUTO) 401 K/uL (150-450); RED BLOOD CELL COUNT(AUTO) 3.33 MIL/uL (4.0-5.2); WHITE BLOOD COUNT (AUTO) 13.9 K/uL (4.3-11.0)
[2022-01-08 04:11] LABS: CALCIUM, SERUM 8.5 mg/dL (8.5-10.1); CREATININE 0.7 mg/dL (0.6-1.3); POTASSIUM 4.4 mmol/L (3.5-5.1)
--- NOTE | 2022-01-08 07:18 | NUR ---
RN NOTES PATIENT AWAKE, CALM AND COOPERATIVE. REMAIN STABLE THROUGH OUT THE SHIFT, VENT SETTINGS TOLERATED WELL. RESPIRATORY EVEN AND UNLABORED, NO SOB NOTED. REMAIN AFEBRILE, NO S/S OF DISTRESS NOTED. WITH JESSICA @ 0.3MCG/RACHELLE/MIN AND PRECEDEX @ 0.5 MCG/KG/HR. WITH OGT PATENT AND INTACT, VERIFIED PLACEMENT BY AUSCULTATION, NO RESIDUAL NOTED UPON ASPIRATION, FLUSHED WITH WATER, RUNNING WITH JEVITY 1.2 @ 50 ML/HR, HEAD OF BED KEPT ELEVATED. GARZA CATHETER PATENT INTACT DRAINING CLEAR YELLOW URINE VIA GRAVITY. REPOSITION PATIENT EVERY 2 HRS. ALL DUE MEDS GIVEN. WOUND DRESSING CHANGED, PROCEDURE TOLERATED WELL. ALL SAFETY PRECAUTION PROVIDED, BED IN LOWEST POSITION, LOCKED. BED ALARM ARMED. CALL LIGHT WITH IN REACH. REPORT GIVEN TO MORNING SHIFT NURSE FOR CONTINUITY OF CARE.
[2022-01-08] MEDS ORDERED: DC PROPOFOL WHEN EXTUBATED XX PRN (08:00)
[2022-01-08] MEDS: DOCUSATE SODIUM LIQ 100 MG/10 ML UDC NG SCH (08:25)
[2022-01-08] MEDS: ropiniROLE 0.5 MG TABLET PO SCH (08:31)
[2022-01-08] MEDS: CITRIC ACID/SODIUM CITRATE (BICITRA)15 ML UDC PO SCH ×4 (08:31→16:48)
[2022-01-08] MEDS: HEPARIN SODIUM, PORCINE 5000 UNITS/1 ML VIAL SQ SCH (08:32)
[2022-01-08] MEDS: PRECEDEX 400 MCG/100 ML BOTTLE 100 ML IV PRN (08:47)
[2022-01-08 08:52] LABS: ABG BASE EXCESS -1.9 mmol/L; ABG OXYGEN SATURATION 93.3 % (92.0-98.5); ABG PCO2 29.6 mmHg (35.0-45.0); ABG PH 7.467 (7.350-7.450); ABG PO2 64.8 mmHg (75.0-100.0); AaDO2 114.3 mmHg; COHb 0.3 % (0.5-1.5); MetHb 0.3 % (0.0-1.5); O2Hb 92.7 % (94.0-97.0); SITE, ABG Right Radial; VENT MODE, BG simv 4 475 40% +5
[2022-01-08 09:10] LABS: BAND % (MANUAL) 4 % (0.0-5.0); LYMPHOCYTES % (MANUAL) 11 % (16-48); MONOCYTES % (MANUAL) 9 % (0-11.0); NEUTROPHILS % (MANUAL) 76 (42-76)
[2022-01-08] MEDS: Z GUARD REMEDY 4 OZ OINT TP SCH (14:20)
--- NOTE | 2022-01-08 16:26 | NUR ---
NGT Re-insertion unsuccessful. Attempted 3 to 4 times. NGT appears to coil in mouth. Pt presernted with Elevated HR 160-170 and decrease O2 sat 88; will try to attempt again once pt settles down. Objectives finding: Pt appears to have a slight deformity at "bride of nose? "Operative scar?" near bridge of nose. Deviated septum? which may present an abnormality making it difficult to pass an NGT
--- NOTE | 2022-01-08 16:49 | NUR ---
No NGT access to administer meds. Will notify physician
[2022-01-08] MEDS: NORTRIPTYLINE HCL 25 MG CAPSULE PO SCH (16:51)
[2022-01-08] MEDS: MORPHINE SULFATE INJ 4 MG/ML DISP.SYRIN IV PRN ×3 (17:31→23:10)
--- NOTE | 2022-01-08 17:43 | NUR ---
Pt presenting with severe respiratory distress @ this time. Tachypnea RR 40 to 50's. HR 170's noted. Provided deep suctioning, but pt still presents with persistent thick secretions. Dr Evans aware. Family at bedside. Morphine 4 mg IVP given to try and ease with Respiratory distress. Family (brother @ bedside) informed.
[2022-01-08] MEDS ORDERED: MORPHINE SULFATE IV PRN (18:00)
[2022-01-08] MEDS ORDERED: D5W IV PRN (18:00)
--- NOTE | 2022-01-08 18:23 | NUR ---
RT EXTUBATED 9AM, PLACE DON SM 10L TX NOT GIVEN HIGH HEART RATE >160 ATTEMPTED TO NT SX CATHETER NOT PASSING, ORAL SUCTIONED
--- NOTE | 2022-01-08 18:39 | NUR ---
Family decided to move forward with comfort care. Brother @ bedside agrees to start Morphine drip. Dr. Evans notified of family decision. Will initiate Morphine Drip protocol once received from pharmacy
--- NOTE | 2022-01-08 19:10 | NUR ---
RN OPENING NOTES RECEIVED PATIENT ON BED, AWAKE, RESTLESS, IN SEVERE RESPIRATORY DISTRESS, WITH HEART RATE OF 150 BPM, RESPIRATORY RATE 45, PATIENT S/P EXTUBATION. ON SIMPLE MASK @ 10 LPM SATING AT 94%. PATIENT NOW ON COMFORT MEASURE ONLY. WITH RIGHT IJ TRIPLE LUMEN CATH. ON GARZA CATHETER PATENT INTACT, DRAINING WITH YELLOW CLEAR URINE VIA GRAVITY. FAMILY MEMBER ON BEDSIDE. CONTINUE TO MONITOR
--- NOTE | 2022-01-08 19:35 | NUR ---
RN NOTES MORPHINE DRIP STARTED AT 5MG/HR.
--- NOTE | 2022-01-08 20:00 | NUR ---
RN NOTED PATIENT STILL NOTED WITH SEVERE RESPIRATORY DISTRESS, MORPHINE DRIP INCREASED TO 6MG/HR.
--- NOTE | 2022-01-08 20:04 | NUR ---
RT NOTE TX NOT GIVEN DUE TO HIGH HR. SPO2 @ 95%. PT IS ON 10LPM SIMPLE MASK.
--- NOTE | 2022-01-08 20:20 | NUR ---
RN NOTES PATIENT TRANSFERRED TO ROOM 329.
--- NOTE | 2022-01-08 20:30 | NUR ---
RN NOTED PATIENT STILL NOTED WITH SEVERE RESPIRATORY DISTRESS, MORPHINE DRIP INCREASED TO 7MG/HR.
--- NOTE | 2022-01-08 21:45 | NUR ---
RN NOTES PATIENT NOTED WITH TEMP- 102.5 FAHRENHEIT, COOLING MEASURE PROVIDED. CONTINUE TO MONITOR.
--- NOTE | 2022-01-08 22:10 | NUR ---
RN NOTES REPORT GIVEN TO MINOR RING FOR CONTINUITY OF CARE.
--- NOTE | 2022-01-08 22:29 | NUR ---
RN RECEIVING NOTES patient transferred at around 2215 accompanied by 2 ICU RNs and 1 family member. Patient noted to be having agonal breathing, in 10lpm of o2 via simple mask. patient has rt. IJ TLC running IV ns on TKO and morphine running at 7mg/hr. case cath draining cloudy, yellow urine. with 200mls uo noted for now. noted extremities to be edematous and flaccid. v/s as follows: 128/78, hr in the 15o's, t-98.6, saturating 95%. will continue with comfort measures.
--- NOTE | 2022-01-08 23:10 | NUR ---
noc rn note patient family member requested to give morphine. per brother, "can you please give her the morphine, she was not breathing like this in the icu when they gave her morphine". teaching made about adverse effect of morphine and patient given morphine 4mg IV as ordered PRN for SOB per family request.
[2022-01-09] MEDS: ALBUTEROL FS 2.5 MG/0.5 ML VIAL.NEB NEB SCH ×4 (01:30→19:30)
[2022-01-09] MEDS: IPRATROPIUM NEB FS 0.5 MG/2.5 ML AMPUL.NEB IH SCH ×4 (01:30→19:30)
--- NOTE | 2022-01-09 07:30 | NUR ---
noc rn closing needs attended. report given to Ani for continuity of patient care.
--- NOTE | 2022-01-09 07:30 | NUR ---
MS RN NOTES RECEIVED PATIENT IN BED. NON VERBAL. WITH OPEN EYES. BROTHER AT HER BED SIDE. NO FACIAL GRIMACING NOTED. NOTED WITH OGONAL BREATHING. ON 10 L/MIN OF THE OXYGEN VIA SIMPLE MASK. RIGHT INTRAJAGULAR IV ACCESS INTACT AND RUNNING IV MORPHINE DRIP AT 7MG/HR. AND NS AT 10 ML/HR. TKO.GARZA CATHETER INTACT AND DRAINING YELLOW COLOR URINE BY GRAVITY. NOTED UPPER AND LOWER EXTREMITY EDEMA. ELEVATED THE EXTREMITIES. ALL THE SAFETY MEASURES IN PLACE. BED LOCKED IN TYHE LOWEST POSITION. CALL LIGHT AND TABLE IN EASY REACH. SIDE RAILS UP TIMES 2. WILL CONTINUE WITH PLAN OF CARE CLOSELY.
[2022-01-09 07:38] LABS: CALCIUM, SERUM 8.5 mg/dL (8.5-10.1); CREATININE 1.1 mg/dL (0.6-1.3); POTASSIUM 5.6 mmol/L (3.5-5.1)
[2022-01-09 08:00] VITALS: BP 122/80
[2022-01-09] MEDS: MORPHINE SULFATE INJ 4 MG/ML DISP.SYRIN IV PRN ×3 (08:27→17:45)
--- NOTE | 2022-01-09 08:27 | NUR ---
RN NOTES PRN 4 MG MORPHINE GIVEN FOR RESPIRATORY DISTRESS AT 0827. PATIENT TOLERATED WELL.
--- NOTE | 2022-01-09 08:48 | NUR ---
HHN TX NOT GIVEN DUE TO 137 HR, RN NOTIFIED.
--- NOTE | 2022-01-09 09:30 | NUR ---
RN NOTES NOTED WITH TEMPERATURE OF 100.6. ORDER OBTAINED FROM EVY BONILLA FOR SUPPOSITORY TYLENOL. SUPPOSITORY TYLENOL GIVEN AT 0932. PATIENT TOLERATED WELL.
[2022-01-09] MEDS: ACETAMINOPHEN 650 MG/SUPP.RECT RC PRN (09:32)
--- NOTE | 2022-01-09 10:32 | NUR ---
RN NOTES RECHECKED THE TEMPERATURE AT 1032. NOTED TEMP OF 97.4. WILL CONTINUE TO MONITOR.
--- NOTE | 2022-01-09 12:55 | NUR ---
RN NOTES PRN MORPHINE GIVEN AT 1255 FOR RESPIRATORY DISTRESS. PATIENT TOLERATED WELL. SISTER AT HER BED SIDE.
--- NOTE | 2022-01-09 14:35 | NUR ---
RN NOTES VITAL SIGNS CHECKED AT 1435 SO=169/85, P=140, T=99.3, RR= 27, FAMILY AT BED SIDE.
[2022-01-09 16:00] VITALS: BP 111/77
[2022-01-09] MEDS: IV NS 0.9% 250 ML IV PRN (17:04)
--- NOTE | 2022-01-09 17:51 | NUR ---
RN NOTES PRN 4 MG MORPHINE GIVEN FOR RESPIRATORY DISTRESS AT 1745. PATIENT TOLERATED WELL. BROTHER AT THE BED SIDE.
--- NOTE | 2022-01-09 18:56 | NUR ---
MS RN NOTES PATIENT IN BED. NON VERBAL. WITH OPEN EYES. BROTHER AT HER BED SIDE. NO FACIAL GRIMACING NOTED. NOTED WITH OGONAL BREATHING. ON 10 L/MIN OF THE OXYGEN VIA SIMPLE MASK. RIGHT INTRAJAGULAR IV ACCESS INTACT AND RUNNING IV MORPHINE DRIP AT 7MG/HR. AND NS AT 10 ML/HR. TKO.GARZA CATHETER INTACT AND DRAINING YELLOW COLOR URINE BY GRAVITY. OUTPUT WAS 600 ML.NOTED UPPER AND LOWER EXTREMITY EDEMA. ELEVATED THE EXTREMITIES. DUE MEDS GIVEN ORDERED. SISTER, MOTHER AND SISTER IN LAW VISITED THE PATIENT. ALL THE SAFETY MEASURES IN PLACE. BED LOCKED IN THE LOWEST POSITION. CALL LIGHT AND TABLE IN EASY REACH. SIDE RAILS UP TIMES 2. WILL ENDORSE FOR MARY..
[2022-01-09 20:00] VITALS: BP 121/64
--- NOTE | 2022-01-09 20:24 | NUR ---
MS MINOR OPENING NOTES PATIENT IS HERE FOR SEPTIC SHOCK. HER HISTORY INCLUDES CEREBRAL PALSY, HTN, AND FUNCTIONAL QUADRIPLEGIA. NO KNOWN ALLERGIES AND PATIENT IS NONVERBAL. SHE IS ON A SIMPLE MASK RUNNING AT 10L/MINUTE AND SATURATING AT 100%. MORPHINE 4 MG IV TO BE GIVEN FOR SOB ON TOP OF MORPHINE DRIP RUNNING AT 7 MG/HR THROUGH RIGHT INTRAJUGULAR PICC LINE. THIS NEEDS TO BE TITRATED TO 15 MG/HOUR. NS IS TKO. INCONTINENT AND HAS A GARZA CATHETER. PLAN IS COMFORT MEASURES AND STRICT ASPIRATION PRECAUTIONS. CONTINUE OXYGEN SUPPLEMENTATION AND SUPPORTIVE CARE. FAMILY BY BEDSIDE. WILL CONTINUE TO MONITOR.
[2022-01-09] MEDS ORDERED: KEY,NONCONTROL,TO KEEP IN PYXI 1 EA MC ONE (20:58)
[2022-01-09] MEDS: MORPHINE SULFATE PF DRIP 250 MG in IV D5W 240 ML IV PRN (21:07)
[2022-01-10] MEDS: IPRATROPIUM NEB FS 0.5 MG/2.5 ML AMPUL.NEB IH SCH ×4 (00:58→19:30)
[2022-01-10] MEDS: ALBUTEROL FS 2.5 MG/0.5 ML VIAL.NEB NEB SCH ×4 (00:58→19:30)
[2022-01-10] MEDS: MORPHINE SULFATE INJ 4 MG/ML DISP.SYRIN IV PRN ×4 (02:34→18:04)
--- NOTE | 2022-01-10 06:42 | NUR ---
RN NOTE PT MORPHINE DRIP INCREASED FROM 10 ML/HR TO 11 ML/HR FOR COMFORT PER TITRATION PROTOCOL. CHARGE NURSE ANABEL BLEVINS.
--- NOTE | 2022-01-10 06:49 | NUR ---
MS RN CLOSING NOTES PATIENT IS HERE FOR SEPTIC SHOCK. HER HISTORY INCLUDES CEREBRAL PALSY, HTN, AND FUNCTIONAL QUADRIPLEGIA. NO KNOWN ALLERGIES AND PATIENT IS NONVERBAL. SHE IS ON A SIMPLE MASK RUNNING AT 10L/MINUTE AND SATURATING AT 97%. MORPHINE 4 MG IV GIVEN FOR SOB X 1 ON TOP OF MORPHINE DRIP RUNNING AT 11 MG/HR THROUGH RIGHT INTRAJUGULAR PICC LINE. THIS WILL ULTIMATELY BE TITRATED TO 15 MG/HOUR. NS IS TKO. INCONTINENT AND HAS A GARZA CATHETER. 300 ML OUTPUT RECORDED AT END OF SHIFT. PLAN IS TO CONTINUE COMFORT MEASURES AND STRICT ASPIRATION PRECAUTIONS. ALSO TO CONTINUE OXYGEN SUPPLEMENTATION AND SUPPORTIVE CARE. FAMILY BY BEDSIDE. WILL ENDORSE TO NEXT SHIFT FOR MARY.
--- NOTE | 2022-01-10 07:35 | NUR ---
MS RN OPENING NOTES RECEIVED PATIENT IN BED. NON VERBAL. WITH OPEN EYES. BROTHER AT HER BED SIDE. NO FACIAL GRIMACING NOTED. NO RESPIRATORY DISTRESS NOTED. ON 10 L/MIN OF THE OXYGEN VIA SIMPLE MASK. RIGHT INTRAJAGULAR IV ACCESS INTACT AND RUNNING IV MORPHINE DRIP AT 11 MG/HR. AND NS AT 10 ML/HR. TKO.GARZA CATHETER INTACT AND DRAINING YELLOW COLOR URINE BY GRAVITY. NOTED UPPER AND LOWER EXTREMITY EDEMA. ELEVATED THE EXTREMITIES. ALL THE SAFETY MEASURES IN PLACE. BED LOCKED IN THE LOWEST POSITION. CALL LIGHT AND TABLE IN EASY REACH. SIDE RAILS UP TIMES 2. WILL CONTINUE WITH PLAN OF CARE CLOSELY.
[2022-01-10 08:00] VITALS: BP 135/74
--- NOTE | 2022-01-10 08:10 | NUR ---
RT Tx not given due to elevated HR (134)
[2022-01-10] MEDS: ACETAMINOPHEN 650 MG/SUPP.RECT RC PRN (08:39)
--- NOTE | 2022-01-10 09:21 | NUR ---
RN NOTES NEW ORDER OBTAINED FROM EVY BONILLA IV HYDRATION OF D5NS AT 75 ML/HR. ORDER NOTED AND CARRIED OUT.
[2022-01-10] MEDS: IV D5/ 0.9% NACL 1,000 ML IV SCH ×2 (09:30→22:48)
[2022-01-10] MEDS ORDERED: KEY,NONCONTROL,TO KEEP IN PYXI 1 EA MC ONE ×3 (09:36→18:56)
[2022-01-10 16:00] VITALS: BP 121/68
[2022-01-10] MEDS: MORPHINE SULFATE PF DRIP 250 MG in IV D5W 240 ML IV PRN (19:01)
--- NOTE | 2022-01-10 19:23 | NUR ---
RN NOTES THE RN TOMAS WITNESSED WITH THE OLD MORPHINE BAG WASTE. THE WASTE AMOUNT WAS 70 MG. THE RN TOMAS COSIGNED FOR THE WASTE AMOUNT.
--- NOTE | 2022-01-10 19:30 | NUR ---
MS RN CLOSING NOTES PATIENT IN BED. NON VERBAL. WITH OPEN EYES. BROTHER AT HER BED SIDE. NO FACIAL GRIMACING NOTED. NO RESPIRATORY DISTRESS NOTED. ON 10 L/MIN OF THE OXYGEN VIA SIMPLE MASK. RIGHT INTRAJAGULAR IV ACCESS INTACT AND RUNNING IV MORPHINE DRIP AT 12 MG/HR. AND D5NS AT 75 ML/HR. GARZA CATHETER INTACT AND DRAINING YELLOW COLOR URINE BY GRAVITY. NOTED UPPER AND LOWER EXTREMITY EDEMA. ELEVATED THE EXTREMITIES. ALL THE SAFETY MEASURES IN PLACE. BED LOCKED IN THE LOWEST POSITION. CALL LIGHT AND TABLE IN EASY REACH. SIDE RAILS UP TIMES 2. ASPIRATION PRECAUTION. WILL ENDORSE FOR MARY.
--- NOTE | 2022-01-10 19:30 | NUR ---
RN NOTES THE NEW BAG OF THE MORPHINE STARTED AT 1901. THE RN NURSE TOMAS WITNESSED THE DOSE. IT WAS 12 MG /HR.
--- NOTE | 2022-01-10 19:38 | NUR ---
MS RN OPENING NOTES RECEIVED PATIENT IN BED. NON VERBAL,WITH EYES CLOSED,BROTHER AT HER BED SIDE.ON 10L OXYGEN VIA SIMPLE MASK.DENA WELL SATTING 84-86%,COMFORT MEASURE PATIENT,RIGHT INTRAJAGULAR IV ACCESS INTACT AND RUNNING IV MORPHINE DRIP AT 12 MG/HR.NO FACIAL GRIMACE FOR PAIN/DISCOMFORT AT THIS TIME,NS AT 25ML/HR. TKO.GARZA CATHETER INTACT AND DRAINING YELLOW COLOR URINE BY GRAVITY. NOTED UPPER AND LOWER EXTREMITY EDEMA. ELEVATED THE EXTREMITIES. ALL THE SAFETY MEASURES IN PLACE. BED LOCKED IN THE LOWEST POSITION. CALL LIGHT AND TABLE IN EASY REACH. SIDE RAILS UP TIMES 2. WILL CONTINUE TO MONITOR.
[2022-01-10 20:00] VITALS: BP 122/49
--- NOTE | 2022-01-11 00:10 | NUR ---
CHARGE NURSE NOTES PRONOUNCED PATIENT AT THIS TIME. PATIENT HAVE NO PULSE, NO RESPIRATION, NO BLOOD PRESSURE, PUPILS ARE DILATED
--- NOTE | 2022-01-11 00:10 | NUR ---
RN NOTES; PT NOTED NO BREATHING,NO PULSE,NOTIFIED ANABEL CHARGE NURSE,SHE ASSEST THE PT,BREATHING AND V/S,SHE NOTED,NO BREATHING,NO PULSE,NO BP,AND SHE PRONOUCED .I ALSO NOTIFIED THE FAMILY (ELI) @ 0015,AND FAWN.
--- NOTE | 2022-01-11 00:10 | NUR ---
RN NOTES; I SPOKE TO RUBIO CAMPA.FROM [facility] AND SHE GIVE ME A REFERENCE NUMBER,([id number]).NOT CANDIDATE OR ELIGIBLE FOR TISSUE DONATION.
[2022-01-11] MEDS ORDERED: KEY,NONCONTROL,TO KEEP IN PYXI 1 EA MC ONE (01:21)
== END 2022-01-11 00:10 | DRG 720 ==
LOC: ER 23:13 → ICU 01-01 02:12 → MED 01-08 22:13
PROVIDERS: ADMIT Internal Medicine; ATTEND Nurse Practitioner Acute Care
PROC: 5A1955Z Respiratory Ventilation, Greater than 96 Consecutive Hours (ICD-10-PCS; principal; 2022-01-01)
PROC: 0BH18EZ Insertion of Endotracheal Airway into Trachea, Via Natural or Artificial Opening Endoscopic (ICD-10-PCS; 2022-01-01)
PROC: 05HM33Z Insertion of Infusion Device into Right Internal Jugular Vein, Percutaneous Approach (ICD-10-PCS; 2022-01-01)
PROC: B543ZZA Ultrasonography of Right Jugular Veins, Guidance (ICD-10-PCS; 2022-01-01)
PROC: 5A2204Z Restoration of Cardiac Rhythm, Single (ICD-10-PCS; 2022-01-01)
DX: A41.1 Sepsis due to other specified staphylococcus (principal); J96.01 Acute respiratory failure with hypoxia; N17.0 Acute kidney failure with tubular necrosis; R65.21 Severe sepsis with septic shock; J69.0 Pneumonitis due to inhalation of food and vomit; G93.41 Metabolic encephalopathy; E44.1 Mild protein-calorie malnutrition; E87.20 Acidosis, unspecified; I21.A1 Myocardial infarction type 2; R53.2 Functional quadriplegia; D68.59 Other primary thrombophilia; G80.9 Cerebral palsy, unspecified; Z20.822 Contact with and (suspected) exposure to COVID-19; N18.9 Chronic kidney disease, unspecified; I12.9 Hypertensive chronic kidney disease with stage 1 through stage 4 chronic kidney disease, or unspecified chronic kidney disease; Z79.899 Other long term (current) drug therapy; R13.10 Dysphagia, unspecified; Z66 Do not resuscitate; Z51.5 Encounter for palliative care; E88.09 Other disorders of plasma-protein metabolism, not elsewhere classified; K20.90 Esophagitis, unspecified without bleeding; K52.9 Noninfective gastroenteritis and colitis, unspecified; Z87.01 Personal history of pneumonia (recurrent); Z87.440 Personal history of urinary (tract) infections; Z87.820 Personal history of traumatic brain injury; J98.11 Atelectasis; E78.1 Pure hyperglyceridemia; I47.1 Supraventricular tachycardia; E86.0 Dehydration; E87.6 Hypokalemia; E87.5 Hyperkalemia; M62.421 Contracture of muscle, right upper arm; L98.9 Disorder of the skin and subcutaneous tissue, unspecified; R26.9 Unspecified abnormalities of gait and mobility; S39.92XA Unspecified injury of lower back, initial encounter; X58.XXXA Exposure to other specified factors, initial encounter; Y92.9 Unspecified place or not applicable
CPT/HCPCS: 31720; 36415; 36600; 70450-TC; 71045-TC; 80048-TC; 80053-TC; 80076-TC; 80202-TC; 81001; 82533; 82803-TC; 83605-TC; 83735-TC; 84100-TC; 84478-TC; 84484-TC; 85025-TC; 85730-TC; 87040-TC; 87086-TC; 87186-TC; 93307-TC; 94002-TC; 94003-TC; 94799-TC; A4624; C9803; G0378; J0330; J0692; J1644; J1720; J2185; J2250; J2270; J2274; J2370; J2543; J3010; J3370; J3475; J3480; J3490; J7030; J7042; J7050; J7060; J7120; Q9967